=== PATIENT | male | born 1935 | race Caucasian/White ===

== ENCOUNTER 2017-01-20 15:41 | Inpatient (IN) | payer MEDICARE ==
[2017-01-20] MEDS ORDERED: Albuterol/Ipratropium 3.0-0.5 MG/3 ML Neb Soln NEB ONE (15:55)
--- NOTE | 2017-01-20 15:56 | EDM.PDOC ---
ED HPI GENERAL MEDICAL PROBLEM - General Chief Complaint: Respiratory Problem Stated Complaint: MEDICAL Time Seen by Provider: 01/20/17 15:50 Source of Information: Reports: Patient, EMS, Family, [facility] Records, Provider History Limitations: Reports: Respiratory Distress - History of Present Illness INITIAL COMMENTS - FREE TEXT/NARRATIVE: 82-year-old male who recently had an angiogram, fdc patient over the last day has become short of breath, feverish. Denies chest pain. Patient suffered a stroke 2 months ago, and just got increase to a thicker diet over the last week. He is a high risk for aspiration. He has had a cough for the last 3-4 days, but has become much worse over the past 24 hours with fever, increased dyspnea and increased cough. He's been complaining of a lot of "heartburn" over the past 2 days. Severity: Moderate Associated Symptoms: Reports: Cough, Fever/Chills, Shortness of Breath. Denies : Nausea/Vomiting Middle Chest Pain Score (Numeric/FACES): 4 - Related Data Allergies Allergy/AdvReac Type Severity Reaction Status Date / Time cephalexin Allergy Other Verified 01/20/17 18:25 lisinopril Allergy Other Verified 01/20/17 18:25 Penicillins Allergy Other Verified 01/20/17 18:25 red yeast rice Allergy Other Verified 01/20/17 18:25 Home Meds: Home Meds Acetaminophen [Acetaminophen ER] 650 mg PO BID 01/20/17 [History] Aspirin [Lo-Dose Aspirin EC] 81 mg PO DAILY 01/20/17 [History] Atenolol 25 mg PO BID 01/20/17 [History] Glucosamine Sulfate 2KCl [Glucosamine] 1,000 mg PO DAILY 01/20/17 [History] Latanoprost [Xalatan 0.005% Ophth Soln] 1 drop EYEBOTH BEDTIME 01/20/17 [History ] Menthol/Methyl Salicylate [Pain Relieving Rub Cream] 1 gm TOP BID PRN 01/20/17 [ History] Menthol/Methyl Salicylate [Pain Relieving Rub Cream] 1 gm TP BID 01/20/17 [ History] Sennosides [Senna] 1 tab PO DAILY 01/20/17 [History] Warfarin [Coumadin] 2.5 mg PO ASDIRECTED 01/20/17 [History] Warfarin [Coumadin] 5 mg PO ASDIRECTED 01/20/17 [History] atorvaSTATin [Lipitor] 10 mg PO BEDTIME 01/20/17 [History] ED ROS GENERAL - Review of Systems Review Of Systems: See Below Constitutional: Reports: Fever, Chills, Malaise HEENT: Reports: Other (Dysarthria secondary to the stroke) Respiratory: Reports: Shortness of Breath, Wheezing, Cough Cardiovascular: Denies: Palpitations GI/Abdominal: Reports: Abdominal Pain. Denies: Nausea, Vomiting : Reports: No Symptoms Skin: Reports: Diaphoresis Psychiatric: Reports: No Symptoms ED EXAM, GENERAL - Physical Exam Exam: See Below Exam Limited By: No Limitations General Appearance: Alert, No Apparent Distress (Patient is displaying some mild respiratory effort and increased rate but is not distressed) Eye Exam: Bilateral Eye: EOMI Throat/Mouth: Other (patient has some right perioral drooping secondary to a recent CVA) Head: Atraumatic Respiratory/Chest: Crackles (Diffuse expiratory wheezing bilateral basal crackles, worse on the right), Wheezing Cardiovascular: Regular Rate, Rhythm. No: Tachycardia GI/Abdominal: Tender (Reacts with tenderness to palpation of the abdomen diffusely, hypoactive bowel sounds) Extremities: Other (Right-sided weakness) Neurological: Sensory/Motor Deficit (Right arm and right leg as well as right facial droop) Psychiatric: Normal Affect, Normal Mood Skin Exam: Warm, Dry Course - Vital Signs Last Recorded V/S: Last Vital Signs Temp 97.2 F 01/21/17 04:00 Pulse 90 01/21/17 05:17 Resp 26 H 01/21/17 06:00 BP 117/59 L 01/21/17 06:00 Pulse Ox 96 01/21/17 06:00 - Orders/Labs/Meds Orders: Active Orders 24 hr Category Date Time Status RT Aerosol Therapy [RC] ASDIRECTED Care 01/20/17 15:55 Inactive Abdomen Ltd [US] Stat Exams 01/20/17 17:21 Taken Chest 1V Frontal [CR] Stat Exams 01/20/17 15:55 Taken CULTURE BLOOD [BC] Urgent Lab 01/20/17 16:10 Received CULTURE BLOOD [BC] Urgent Lab 01/20/17 16:15 Received Sodium Chloride 0.9% [Normal Saline] 1,000 ml Med 01/20/17 18:30 Active IV ASDIRECTED Blood Culture x2 Reflex Set [OM.PC] Urgent Oth 01/20/17 15:54 Ordered EKG 12 Lead [EK] Routine Ther 01/20/17 15:54 Stop Req Medication Orders Acetaminophen (Tylenol) 650 mg PO Q4H PRN PRN Reason: Pain (Mild 1-3)/fever Acetaminophen (Tylenol) 650 mg RECTAL Q4H PRN PRN Reason: Mild pain/fever Albuterol (Proventil Neb Soln) 2.5 mg NEB Q4H PRN PRN Reason: Shortness Of Breath/wheezing Albuterol/Ipratropium (Duoneb 3.0-0.5 Mg/3 Ml) 3 ml NEB QID HOLLIS Last Admin: 01/20/17 21:16 Dose: 3 ml Bisacodyl (Dulcolax) 5 mg PO DAILY PRN PRN Reason: Constipation Sodium Chloride (Normal Saline) 1,000 mls @ 125 mls/hr IV ASDIRECTED HOLLIS Last Admin: 01/21/17 05:15 Dose: 125 mls/hr Infusion: 01/21/17 04:26 Dose: 125 mls/hr Admin: 01/20/17 20:26 Dose: 125 mls/hr Meropenem 1,000 mg/ Sodium (Chloride) 100 mls @ 200 mls/hr IV Q8H HOLLIS Last Admin: 01/21/17 03:59 Dose: 200 mls/hr Admin: 01/20/17 20:16 Dose: 200 mls/hr Levofloxacin/Dextrose 750 mg/ (Premix) 150 mls @ 100 mls/hr IV Q24H HOLLIS Diltiazem HCl 100 mg/ Sodium (Chloride) 100 mls @ 5 mls/hr IV TITRATE HOLLIS; 5 MG /HR PRN Reason: Protocol Last Admin: 01/21/17 05:17 Dose: 10 mg/hr, 10 mls/hr Titration: 01/21/17 05:17 Dose: 10 mg/hr, 10 mls/hr Titration: 01/20/17 21:15 Dose: 10 mg/hr, 10 mls/hr Admin: 01/20/17 20:05 Dose: 5 mg/hr, 5 mls/hr Lorazepam (Ativan) 0.5 - 1 mg IVPUSH Q4H PRN PRN Reason: Anxiety Methylprednisolone Sodium Succinate (Solu-Medrol) 62.5 mg IVPUSH Q8H [facility] Last Admin: 01/21/17 00:43 Dose: 62.5 mg Morphine Sulfate (Morphine) 2 - 4 mg IVPUSH Q2H PRN PRN Reason: Pain (severe 7-10) Ondansetron HCl (Zofran Odt) 4 mg PO Q6H PRN PRN Reason: Nausea able to take PO Ondansetron HCl (Zofran) 4 mg IV Q6H PRN PRN Reason: Nausea/Vomiting Pantoprazole Sodium (Protonix Iv) 40 mg IVPUSH Q24H [facility] Last Admin: 01/20/17 20:11 Dose: 40 mg Polyethylene Glycol (Miralax) 17 gm PO DAILY PRN PRN Reason: Constipation Labs: Laboratory Tests 01/20/17 01/20/17 01/20/17 Range/Units 16:15 16:15 16:37 WBC 26.5 H (4.5-11.0) K/uL RBC 3.80 L (4.30-5.90) M/uL Hgb 12.4 (12.0-15.0) g/dL Hct 37.1 L (40.0-54.0) % MCV 98 (80-98) fL MCH 33 H (27-31) pg MCHC 33 (32-36) % Plt Count 257 (150-400) K/uL Neut % (Auto) 90 H (36-66) % Lymph % (Auto) 2 L (24-44) % [place] % (Auto) 8 H (2-6) % Eos % (Auto) 0 L (2-4) % Baso % (Auto) 0 (0-1) % Sodium 130 L (140-148) mmol/L Potassium 4.4 (3.6-5.2) mmol/L Chloride 95 L (100-108) mmol/L Carbon Dioxide 26 (21-32) mmol/L Anion Gap 13.4 (5.0-14.0) mmol/L BUN 22 H (7-18) mg/dL Creatinine 1.0 (0.8-1.3) mg/dL Est Cr Clr Drug Dosing TNP Estimated GFR (MDRD) > 60 (>60) Glucose 130 H (74-106) mg/dL Lactic Acid 2.7 H (0.4-2.0) mmol/L Calcium 8.7 (8.5-10.1) mg/dL Total Bilirubin 1.8 H (0.2-1.0) mg/dL AST 110 H (15-37) U/L ALT 102 H (12-78) U/L Alkaline Phosphatase 240 H (46-116) U/L Troponin I < 0.017 (0.000-0.056) ng/mL Total Protein 8.6 H (6.4-8.2) g/dL Albumin 2.7 L (3.4-5.0) g/dL Globulin 5.9 H (2.3-3.5) g/dL Albumin/Globulin Ratio 0.5 L (1.2-2.2) Amylase 20 L (25-115) U/L Lipase 70 L (73-393) U/L Meds: Medications Generic Name Dose Route Start Last Admin Trade Name Freq PRN Reason Stop Dose Admin Acetaminophen 650 mg 01/20/17 19:41 Tylenol PO Q4H PRN Pain (Mild 1-3)/fever Acetaminophen 650 mg 01/20/17 19:41 Tylenol RECTAL Q4H PRN Mild pain/fever Albuterol 2.5 mg 01/20/17 19:41 Proventil Neb Soln NEB Q4H PRN Shortness Of Breath/wheezing Albuterol/Ipratropium 3 ml 01/20/17 22:00 01/20/17 21:16 Duoneb 3.0-0.5 Mg/3 Ml NEB 3 ml QID HOLLIS Administration Bisacodyl 5 mg 01/20/17 19:41 Dulcolax PO DAILY PRN Constipation Sodium Chloride 1,000 mls @ 125 mls/hr 01/20/17 18:30 01/21/17 05:15 Normal Saline IV 125 mls/hr ASDIRECTED HOLLIS Administration Meropenem 1,000 mg/ Sodium 100 mls @ 200 mls/hr 01/20/17 20:00 01/21/17 03:59 Chloride IV 200 mls/hr Q8H HOLLIS Administration Levofloxacin/Dextrose 750 mg/ 150 mls @ 100 mls/hr 01/21/17 18:00 Premix IV Q24H HOLLIS Diltiazem HCl 100 mg/ Sodium 100 mls @ 5 mls/hr 01/20/17 19:41 01/21/17 05:17 Chloride IV 10 mg/hr TITRATE HOLLIS 10 mls/hr Protocol Administration 5 MG/HR Lorazepam 0.5 - 1 mg 01/20/17 19:41 Ativan IVPUSH Q4H PRN Anxiety Methylprednisolone Sodium Succinate 62.5 mg 01/21/17 01:00 01/21/17 00:43 Solu-Medrol IVPUSH 62.5 mg Q8H HOLLIS Administration Morphine Sulfate 2 - 4 mg 01/20/17 19:41 Morphine IVPUSH Q2H PRN Pain (severe 7-10) Ondansetron HCl 4 mg 01/20/17 19:41 Zofran Odt PO Q6H PRN Nausea able to take PO Ondansetron HCl 4 mg 01/20/17 19:41 Zofran IV Q6H PRN Nausea/Vomiting Pantoprazole Sodium 40 mg 01/20/17 20:00 01/20/17 20:11 Protonix Iv IVPUSH 40 mg Q24H HOLLIS Administration Polyethylene Glycol 17 gm 01/20/17 19:41 Miralax PO DAILY PRN Constipation Discontinued Medications Generic Name Dose Route Start Last Admin Trade Name Freq PRN Reason Stop Dose Admin Acetaminophen 1,000 mg 01/20/17 16:43 01/20/17 16:52 Tylenol Extra Strength PO 01/20/17 16:44 1,000 mg ONETIME ONE Administration Albuterol/Ipratropium 3 ml 01/20/17 15:55 01/20/17 16:19 Duoneb 3.0-0.5 Mg/3 Ml NEB 01/20/17 15:56 3 ml ONETIME ONE Administration Diltiazem HCl 10 mg 01/20/17 18:43 01/20/17 18:46 Diltiazem IVPUSH 01/20/17 18:44 10 mg ONETIME ONE Administration Levofloxacin/Dextrose 750 mg/ 150 mls @ 100 mls/hr 01/20/17 16:36 01/20/17 16 :44 Premix IV 01/20/17 18:05 100 mls/hr ONETIME ONE Administration Sodium Chloride 1,000 mls @ 1,000 mls/hr 01/20/17 16:45 Normal Saline IV ASDIRECTED HOLLIS Sodium Chloride 1,000 mls @ 250 mls/hr 01/20/17 18:17 Normal Saline IV 01/21/17 00:46 ASDIRECTED HOLLIS Sodium Chloride 2,000 mls @ 999 mls/hr 01/20/17 18:20 01/20/17 18:33 Normal Saline IV 01/20/17 20:20 999 mls/hr .BOLUS ONE Administration Sodium Chloride 1,000 mls @ 1,000 mls/hr 01/20/17 18:32 01/20/17 18:34 Normal Saline IV 01/20/17 19:31 Not Given ONETIME ONE Lorazepam 1 mg 01/20/17 17:06 01/20/17 17:03 Ativan IVPUSH 01/20/17 17:07 1 mg ONETIME ONE Administration Lorazepam Confirm 01/20/17 17:06 01/20/17 17:25 Ativan Administered 01/20/17 17:07 Not Given Dose 2 mg .ROUTE .STK-MED ONE Methylprednisolone Sodium Succinate 125 mg 01/20/17 16:36 01/20/17 16:43 Solu-Medrol IVPUSH 01/20/17 16:37 125 mg ONETIME ONE Administration Morphine Sulfate Confirm 01/20/17 17:02 01/20/17 17:01 Morphine Administered 01/20/17 17:03 2 mg Dose Administration 2 mg .ROUTE .STK-MED ONE - Re-Assessments/Exams Free Text/Narrative Re-Assessment/Exam: 01/20/17 16:51 A 1 view portable chest x-ray was obtained which is poor inspiration, high diaphragms possibly covering infiltrates but nothing seen to confirm an infiltrate at this time. CBC returned white blood cell count 26,500. Blood cultures were obtained, CMP lactic acid are pending, normal saline bolus started as well as 125 mg of Solu-Medrol and 750 mg of IV Levaquin after blood cultures were drawn. 01/20/17 17:06 Lactic acid, LFTs, bilirubin all elevated. Patient continued to become more distressed so was given 2 mg of morphine IV along with 1 mg of Ativan IV. BiPAP was initiated. 01/20/17 17:22 Patient responded to the IV sedation. O2 saturations remained 95-97% with BiPAP. Even sedated however he still seemed uncomfortable with abdominal exam, with elevated liver enzymes and bilirubin an ultrasound of the gallbladder was ordered. Ultrasound showed evidence of cholecystitis with a dilated gallbladder , stones and mild wall thickening. Departure - Departure Time of Disposition: 19:19 Disposition: Admitted As Inpatient 68 Condition: Poor Clinical Impression: Hypoxemia, Acute respiratory failure with hypoxia, Cholecystitis, acute Aspiration pneumonia Qualifiers: Aspiration pneumonia type: due to regurgitated food Laterality: right Lung location: lower lobe of lung Qualified Code(s): J69.0 - Pneumonitis due to inhalation of food and vomit - Discharge Information - My Orders Last 24 Hours: My Active Orders 01/20/17 15:54 Blood Culture x2 Reflex Set [OM.PC] Urgent EKG 12 Lead [EK] Routine 01/20/17 15:55 RT Aerosol Therapy [RC] ASDIRECTED Chest 1V Frontal [CR] Stat 01/20/17 16:10 CULTURE BLOOD [BC] Urgent 01/20/17 16:15 CULTURE BLOOD [BC] Urgent 01/20/17 17:21 Abdomen Ltd [US] Stat - Assessment/Plan Last 24 Hours: My Active Orders 01/20/17 15:54 Blood Culture x2 Reflex Set [OM.PC] Urgent EKG 12 Lead [EK] Routine 01/20/17 15:55 RT Aerosol Therapy [RC] ASDIRECTED Chest 1V Frontal [CR] Stat 01/20/17 16:10 CULTURE BLOOD [BC] Urgent 01/20/17 16:15 CULTURE BLOOD [BC] Urgent 01/20/17 17:21 Abdomen Ltd [US] Stat
[2017-01-20] MEDS ORDERED: methylPREDNISolone Sodium Succinate 125 MG/2 ML SDV IVPUSH ONE (16:36)
[2017-01-20] MEDS ORDERED: Levofloxacin/Dextrose 5%-Water 750 MG in Premix Bag 1 BAG IV ONE (16:36)
[2017-01-20] MEDS ORDERED: cefTRIAXone 1 GM in Sodium Chloride 0.9% 50 ML IV ONE (16:36)
[2017-01-20] MEDS ORDERED: Azithromycin 500 MG in Sodium Chloride 0.9% 250 ML IV ONE (16:40)
[2017-01-20] MEDS ORDERED: Acetaminophen 500 MG Tab PO ONE (16:43)
[2017-01-20] MEDS ORDERED: Sodium Chloride 0.9% 1,000 ML IV SCH ×2 (16:45→18:17)
[2017-01-20] MEDS: Morphine 2 MG/ML Syringe ONE (17:01)
[2017-01-20] MEDS: LORazepam 2 MG/ML MDV ONE ×2 (17:01→17:25)
[2017-01-20] MEDS ORDERED: Morphine 2 MG/ML Syringe IVPUSH ONE (17:01)
[2017-01-20] MEDS ORDERED: LORazepam 2 MG/ML MDV IVPUSH ONE ×2 (17:06→17:40)
[2017-01-20] MEDS ORDERED: Sodium Chloride 0.9% 2,000 ML IV ONE (18:20)
[2017-01-20] MEDS ORDERED: Sodium Chloride 0.9% 1,000 ML IV ONE (18:32)
--- NOTE | 2017-01-20 18:32 | PCM.HP ---
H&P History of Present Illness - General Date of Service: 01/20/17 Admit Problem/Dx: Admission Diagnosis/Problem Admission Diagnosis/Problem Aspiration pneumonia Source of Information: Family, Provider. No: Patient History Limitations: Reports: Altered Mental Status - History of Present Illness Initial Comments - Free Text/Narative: Cesar was brought to the emergency room by ambulance after longterm staff noted increasing shortness of breath and respiratory distress. He is extremely lethargic and unable to provide any history at this time. History is gathered from his , longterm records and emergency room records. She reports that he hasn't felt well for the past couple of days with increasing cough and shortness of breath. He had also been complaining of increased heartburn and some epigastric abdominal pain. They had noticed fevers until today. His reports that he was recently switched from nectar thick to regular liquids but has been having some difficulty with swallowing over the past 3 days or so. Upon arrival to the emergency room he was noted to be in significant respiratory distress. He was given a nebulizer and started on noninvasive ventilation after supplemental oxygen proved to be insufficient. Chest x-ray was concerning for right lower lung pneumonia and probable aspiration. Hepatic panel testing showed elevation concerning for possible gallbladder or liver disease in the right upper quadrant ultrasound was suggestive of possible cholecystitis. He has hypoxic respiratory failure due to the aspiration and will be admitted to the intensive care unit on noninvasive ventilation. Middle Chest Pain Score (Numeric/FACES): 4 - Related Data Allergies/Adverse Reactions: Allergies Allergy/AdvReac Type Severity Reaction Status Date / Time cephalexin Allergy Other Verified 01/20/17 18:25 lisinopril Allergy Other Verified 01/20/17 18:25 Penicillins Allergy Other Verified 01/20/17 18:25 red yeast rice Allergy Other Verified 01/20/17 18:25 Home Medications: Home Meds Acetaminophen [Acetaminophen ER] 650 mg PO BID 01/20/17 [History] Aspirin [Lo-Dose Aspirin EC] 81 mg PO DAILY 01/20/17 [History] Atenolol 25 mg PO BID 01/20/17 [History] Glucosamine Sulfate 2KCl [Glucosamine] 1,000 mg PO DAILY 01/20/17 [History] Latanoprost [Xalatan 0.005% Ophth Soln] 1 drop EYEBOTH BEDTIME 01/20/17 [History ] Menthol/Methyl Salicylate [Pain Relieving Rub Cream] 1 gm TOP BID PRN 01/20/17 [ History] Menthol/Methyl Salicylate [Pain Relieving Rub Cream] 1 gm TP BID 01/20/17 [ History] Sennosides [Senna] 1 tab PO DAILY 01/20/17 [History] Warfarin [Coumadin] 2.5 mg PO ASDIRECTED 01/20/17 [History] Warfarin [Coumadin] 5 mg PO ASDIRECTED 01/20/17 [History] atorvaSTATin [Lipitor] 10 mg PO BEDTIME 01/20/17 [History] Past Medical History Cardiovascular History: Reports: Afib, High Cholesterol, Hypertension Neurological History: Reports: Cerebral Aneurysms, CVA Social & Family History - Family History Cardiac: Denies: CAD - Tobacco Use Smoking Status *Q: Never Smoker - Alcohol Use Alcohol Use History: No H&P Review of Systems - Review of Systems: Review Of Systems: Unable To Obtain (pt very lethargic) Exam - Exam Exam: See Below - Vital Signs Vital Signs: Last Vital Signs Temp 38.5 C H 01/20/17 17:29 Pulse 97 01/20/17 18:13 Resp 40 H 01/20/17 18:13 BP 156/123 H 01/20/17 18:13 Pulse Ox 99 01/20/17 18:13 - Exam Quality Assessment: Supplemental Oxygen, Urinary Catheter General: Moderate Distress, Lethargic. No: Alert HEENT: Conjunctiva Clear. No: Mucosa Moist & [place] (dry), Scleral Icterus Neck: Supple, Trachea Midline. No: Lymphadenopathy Lungs: Decreased Breath Sounds (right lung base), Rales (right lung base). No: Normal Respiratory Effort (increased work of breathing) Cardiovascular: Regular Rhythm, Tachycardia, Systolic Murmur GI/Abdominal Exam: Soft, Distended, Tender, Abnormal Bowel Sounds (hypoactive) Extremities: Normal Inspection, No Pedal Edema. No: Increased Warmth Peripheral Pulses: 1+: Dorsalis Pedis (L), Dorsalis Pedis (R) Skin: Warm, Dry, Intact Neuro Extensive - Mental Status: Slow Response to Commands. No: Alert Neuro Extensive - Motor, Sensory, Reflexes: Dysarthria, Abnormal Motor. No: Tremor Psychiatric: Anxious. No: Alert - Patient Data Lab Results Last 24 hrs: Laboratory Results - last 24 hr 0801/20/17 01/20/17 Range/Units 16:15 16:15 16:37 WBC 26.5 H (4.5-11.0) K/uL RBC 3.80 L (4.30-5.90) M/uL Hgb 12.4 (12.0-15.0) g/dL Hct 37.1 L (40.0-54.0) % MCV 98 (80-98) fL MCH 33 H (27-31) pg MCHC 33 (32-36) % Plt Count 257 (150-400) K/uL Neut % (Auto) 90 H (36-66) % Lymph % (Auto) 2 L (24-44) % [place] % (Auto) 8 H (2-6) % Eos % (Auto) 0 L (2-4) % Baso % (Auto) 0 (0-1) % Sodium 130 L (140-148) mmol/L Potassium 4.4 (3.6-5.2) mmol/L Chloride 95 L (100-108) mmol/L Carbon Dioxide 26 (21-32) mmol/L Anion Gap 13.4 (5.0-14.0) mmol/L BUN 22 H (7-18) mg/dL Creatinine 1.0 (0.8-1.3) mg/dL Est Cr Clr Drug Dosing TNP Estimated GFR (MDRD) > 60 (>60) Glucose 130 H (74-106) mg/dL Lactic Acid 2.7 H (0.4-2.0) mmol/L Calcium 8.7 (8.5-10.1) mg/dL Total Bilirubin 1.8 H (0.2-1.0) mg/dL AST 110 H (15-37) U/L ALT 102 H (12-78) U/L Alkaline Phosphatase 240 H (46-116) U/L Troponin I < 0.017 (0.000-0.056) ng/mL Total Protein 8.6 H (6.4-8.2) g/dL Albumin 2.7 L (3.4-5.0) g/dL Globulin 5.9 H (2.3-3.5) g/dL Albumin/Globulin Ratio 0.5 L (1.2-2.2) Amylase 20 L (25-115) U/L Lipase 70 L (73-393) U/L Result Diagrams: 01/20/17 16:15 01/20/17 16:15 Imaging Impressions Last 24 hrs: Chest x-ray - images personally reviewed - poor quality film with shallow inspiration. Possible right lower lung infiltrate. Right hemidiaphragm appears a little elevated. No definite upper lung infiltrate or mass. *Q Meaningful Use (ADM) - VTE *Q VTE Criteria *Q: - VTE Risk Assess *Q Each Risk Factor Represents 1 Point: Serious Lung Disease Including Pneumonia, Less than 1 Month Total Score 1 Point Risk Factors: 1 Each Risk Factor Represents 2 Points: None Total Score 2 Point Risk Factors: 0 Each Risk Factor Represents 3 Points: Age 75 Years or Greater Total Score 3 Point Risk Factors: 3 Each Risk Factor Represents 5 Points: Stroke, Less than 1 Month Total Score 5 Point Risk Factors: 5 Venous Thromboembolism Risk Factor Score *Q: 9 - Stroke *Q Stroke Criteria *Q: - AMI *Q AMI Criteria *Q: - Problem List (1) Aspiration pneumonia SNOMED Code(s): 171434644 ICD Code: J69.0 - PNEUMONITIS DUE TO INHALATION OF FOOD AND VOMIT Status: Acute Current Visit: Yes Qualifiers: Aspiration pneumonia type: due to regurgitated food Laterality: right Lung location: lower lobe of lung Qualified Code(s): J69.0 - Pneumonitis due to inhalation of food and vomit (2) Acute respiratory failure with hypoxia SNOMED Code(s): 17773752, 847415312 ICD Code: J96.01 - ACUTE RESPIRATORY FAILURE WITH HYPOXIA Status: Acute Current Visit: Yes (3) Cholecystitis with cholelithiasis SNOMED Code(s): 555583519, 145909196 ICD Code: K80.10 - CALCULUS OF GALLBLADDER W CHRONIC CHOLECYST W/O OBSTRUCTION Status: Suspected Current Visit: Yes Qualifiers: Cholelithiasis location: gallbladder Cholecystitis acuity: acute Biliary obstruction: without biliary obstruction Qualified Code(s): K80.00 - Calculus of gallbladder with acute cholecystitis without obstruction (4) Cerebrovascular disease SNOMED Code(s): 46503573 ICD Code: I67.9 - CEREBROVASCULAR DISEASE, UNSPECIFIED Status: Acute Current Visit: Yes (5) Atrial fibrillation with rapid ventricular response SNOMED Code(s): 739548956827457 ICD Code: I48.91 - UNSPECIFIED ATRIAL FIBRILLATION Status: Acute Current Visit: Yes Problem List Initiated/Reviewed/Updated: Yes Orders Last 24hrs: Active Orders 24 hr Category Date Time Status Patient Status Manage Transfer [TRANSFER] Routine ADT 01/20/17 18:21 Ordered EKG Documentation Completion [RC] ASDIRECTED Care 01/20/17 15:54 Active RT Aerosol Therapy [RC] ASDIRECTED Care 01/20/17 15:55 Active Abdomen Ltd [US] Stat Exams 01/20/17 17:21 Taken Chest 1V Frontal [CR] Stat Exams 01/20/17 15:55 Taken CULTURE BLOOD [BC] Urgent Lab 01/20/17 16:10 Received CULTURE BLOOD [BC] Urgent Lab 01/20/17 16:15 Received Sodium Chloride 0.9% [Normal Saline] 1,000 ml Med 01/20/17 18:30 Active IV ASDIRECTED Sodium Chloride 0.9% [Normal Saline] 2,000 ml Med 01/20/17 18:20 Active IV .BOLUS Blood Culture x2 Reflex Set [OM.PC] Urgent Oth 01/20/17 15:54 Ordered Resuscitation Status Routine Resus Stat 01/20/17 18:22 Ordered EKG 12 Lead [EK] Routine Ther 01/20/17 15:54 Ordered Medication Orders Sodium Chloride (Normal Saline) 1,000 mls @ 125 mls/hr IV ASDIRECTED HOLLIS Sodium Chloride (Normal Saline) 2,000 mls @ 999 mls/hr IV .BOLUS ONE Stop: 01/20/17 20:20 Assessment/Plan Comment:: Assessment and plan - Probable aspiration pneumonia with hypoxic respiratory failure and sepsis - suspected aspiration a couple of days ago and progressive decline in respiratory status. Patient febrile and has evidence for sepsis at this time. He is very ill despite being on noninvasive ventilation and has a high chance of mortality with this event I believe. Cultures have been collected. -Levofloxacin and meropenem -Noninvasive ventilation -Nebs -Steroids -Repeat lactic acid -Follow-up cultures -Nothing by mouth status Atrial fibrillation with rapid ventricular response - developed in the emergency room. Will be receiving a bolus of diltiazem and then an infusion will start once he arrives in the intensive care unit. -Diltiazem drip -Cardiac monitoring -Optimize electrolytes Possible cholecystitis with cholelithiasis - gallbladder appears distended with mildly thickened gallbladder wall based on ultrasound. Patient is too ill to have any sort of intervention at this time. Infectious causes should be covered by antibiotics as above. 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 Had been on nectar thick liquids but was recently transitioned to regular liquids prior to becoming ill. -Continue medical management Maintenance issues - - DVT prophylaxis - warfarin - GI prophylaxis - PPI - Nutrition - nothing by mouth - Castillo catheter - placed in the emergency room CODE STATUS - DNR/DNI Admission justification - This patient will be admitted for inpatient services and is medically appropriate meeting medical necessity for inpatient admission as outlined in my documentation. I reasonably expect the patient will require inpatient services that span a period time over 2 midnights. I reasonably expect this patient to be discharged or transferred within 96 hours [facility] Disposition - anticipate discharge to the longterm if he survives the hospital stay Primary care physician - Dr Alberto Fleming M.D.
[2017-01-20] MEDS ORDERED: Diltiazem 25 MG/5 ML SDV IVPUSH ONE (18:43)
[2017-01-20] MEDS ORDERED: Ondansetron 4 MG/2 ML SDV IV PRN (19:41)
[2017-01-20] MEDS ORDERED: Polyethylene Glycol 3350 Powder 17 GM Packet PO PRN (19:41)
[2017-01-20] MEDS ORDERED: Ondansetron 4 MG Tab.DIS PO PRN (19:41)
[2017-01-20] MEDS ORDERED: Bisacodyl 5 MG Tab PO PRN (19:41)
[2017-01-20] MEDS ORDERED: Albuterol 0.083% 2.5 MG/3 ML Neb Soln NEB PRN (19:41)
[2017-01-20] MEDS ORDERED: Acetaminophen 650 MG Supp RECTAL PRN (19:41)
[2017-01-20] MEDS: Diltiazem 100 MG in Sodium Chloride 0.9% 100 ML IV SCH (20:05)
[2017-01-20] MEDS: Pantoprazole 40 MG Vial IVPUSH SCH (20:11)
[2017-01-20] MEDS: Meropenem 1,000 MG in Sodium Chloride 0.9% 100 ML IV SCH (20:16)
[2017-01-20] MEDS: Sodium Chloride 0.9% 1,000 ML IV SCH (20:26)
[2017-01-20] MEDS: Albuterol/Ipratropium 3.0-0.5 MG/3 ML Neb Soln NEB SCH (21:16)
[2017-01-21] MEDS: methylPREDNISolone Sodium Succinate 125 MG/2 ML SDV IVPUSH SCH ×3 (00:43→17:10)
[2017-01-21] MEDS: Meropenem 1,000 MG in Sodium Chloride 0.9% 100 ML IV SCH (03:59)
[2017-01-21] MEDS: Sodium Chloride 0.9% 1,000 ML IV SCH (05:15)
[2017-01-21] MEDS: Diltiazem 100 MG in Sodium Chloride 0.9% 100 ML IV SCH ×2 (05:17→15:28)
[2017-01-21] MEDS: Albuterol/Ipratropium 3.0-0.5 MG/3 ML Neb Soln NEB SCH ×5 (07:31→21:14)
[2017-01-21] MEDS: Morphine 2 MG/ML Syringe ONE (07:35)
[2017-01-21] MEDS ORDERED: Sodium Chloride 0.9% 1,000 ML IV SCH (10:00)
--- NOTE | 2017-01-21 10:02 | CR ---
Chest 1V Frontal HISTORY: fever, resp distress FINDINGS: There is incomplete inspiration. No acute infiltrate is identified. Cardiomediastinal silh ouette is within normal limits for the AP, portable technique. Atherosclerotic calcification is seen in the aortic arch. There is no vascular redistribution or pleural fluid. Chronic rotator cuff tear changes both shoulders are noted. There are anterolateral osteophytes along the thoracic spine. IMPRESSION: 1. Incomplete inspiration. No acute cardiopulmonary disease is identified. 2. Atherosclerotic aorta. 3. Chronic rotator cuff tear changes both shoulders and degenerative changes thoracic spine are note d.
--- NOTE | 2017-01-21 10:07 | PCM.PN ---
- General Info Date of Service: 01/21/17 Functional Status: Reports: Pain Controlled - Review of Systems General: Reports: Fever, Weakness. Denies: Chills Pulmonary: Reports: Shortness of Breath, Cough Cardiovascular: Reports: No Symptoms Gastrointestinal: Reports: No Symptoms Systems Review Comment:: This patient is stabilized since admission yesterday, he had developed acute hypoxic respiratory failure secondary to aspiration pneumonia. He's been on BiPAP overnight and respiratory status has been fairly stable, he is also been hemodynamically stable. More alert today and interactive, but confused. - Patient Data Vitals - Most Recent: Last Vital Signs Temp 97.8 F 01/21/17 07:59 Pulse 88 01/21/17 07:59 Resp 25 H 01/21/17 07:59 BP 115/79 01/21/17 07:59 Pulse Ox 100 01/21/17 07:59 Weight - Most Recent: 180 lb 1.883 oz I&O - Last 24 Hours: Intake & Output 01/20/17 01/21/17 01/21/17 22:59 06:59 14:59 Intake Total 2498 Balance 2498 Lab Results Last 24 Hours: Laboratory Results - last 24 hr 01/20/17 01/21/17 01/21/17 Range/Units 21:39 05:40 05:40 WBC 24.9 H (4.5-11.0) K/uL RBC 3.16 L (4.30-5.90) M/uL Hgb 10.4 L D (12.0-15.0) g/dL Hct 31.1 L (40.0-54.0) % MCV 98 (80-98) fL MCH 33 H (27-31) pg MCHC 33 (32-36) % Plt Count 199 (150-400) K/uL PT 21.6 H (9.5-12.0) sec INR 1.96 H (0.80-1.20) Sodium (140-148) mmol/L Potassium (3.6-5.2) mmol/L Chloride (100-108) mmol/L Carbon Dioxide (21-32) mmol/L Anion Gap (5.0-14.0) mmol/L BUN (7-18) mg/dL Creatinine (0.8-1.3) mg/dL Est Cr Clr Drug Dosing mL/min Estimated GFR (MDRD) (>60) Glucose (74-106) mg/dL Lactic Acid 1.7 (0.4-2.0) mmol/L Calcium (8.5-10.1) mg/dL Total Bilirubin (0.2-1.0) mg/dL AST (15-37) U/L ALT (12-78) U/L Alkaline Phosphatase (46-116) U/L Total Protein (6.4-8.2) g/dL Albumin (3.4-5.0) g/dL Globulin (2.3-3.5) g/dL Albumin/Globulin Ratio (1.2-2.2) 01/21/17 Range/Units 05:40 WBC (4.5-11.0) K/uL RBC (4.30-5.90) M/uL Hgb (12.0-15.0) g/dL Hct (40.0-54.0) % MCV (80-98) fL MCH (27-31) pg MCHC (32-36) % Plt Count (150-400) K/uL PT (9.5-12.0) sec INR (0.80-1.20) Sodium 136 L (140-148) mmol/L Potassium 4.1 (3.6-5.2) mmol/L Chloride 104 (100-108) mmol/L Carbon Dioxide 21 (21-32) mmol/L Anion Gap 15.1 H (5.0-14.0) mmol/L BUN 21 H (7-18) mg/dL Creatinine 1.0 (0.8-1.3) mg/dL Est Cr Clr Drug Dosing 58.92 mL/min Estimated GFR (MDRD) > 60 (>60) Glucose 166 H (74-106) mg/dL Lactic Acid (0.4-2.0) mmol/L Calcium 7.9 L (8.5-10.1) mg/dL Total Bilirubin 1.4 H (0.2-1.0) mg/dL AST 76 H (15-37) U/L ALT 75 (12-78) U/L Alkaline Phosphatase 200 H (46-116) U/L Total Protein 6.8 (6.4-8.2) g/dL Albumin 2.0 L (3.4-5.0) g/dL Globulin 4.8 H (2.3-3.5) g/dL Albumin/Globulin Ratio 0.4 L (1.2-2.2) Med Orders - Current: Current Medications Acetaminophen (Tylenol) 650 mg PO Q4H PRN PRN Reason: Pain (Mild 1-3)/fever Acetaminophen (Tylenol) 650 mg RECTAL Q4H PRN PRN Reason: Mild pain/fever Albuterol (Proventil Neb Soln) 2.5 mg NEB Q4H PRN PRN Reason: Shortness Of Breath/wheezing Albuterol/Ipratropium (Duoneb 3.0-0.5 Mg/3 Ml) 3 ml NEB QIDRT [facility] Last Admin: 01/21/17 07:31 Dose: 3 ml Bisacodyl (Dulcolax) 5 mg PO DAILY PRN PRN Reason: Constipation Levofloxacin/Dextrose 750 mg/ (Premix) 150 mls @ 100 mls/hr IV Q24H [facility] Diltiazem HCl 100 mg/ Sodium (Chloride) 100 mls @ 5 mls/hr IV TITRATE [facility]; 5 MG /HR PRN Reason: Protocol Last Admin: 01/21/17 05:17 Dose: 10 mg/hr, 10 mls/hr Meropenem 1 gm/ Sodium (Chloride) 50 mls @ 100 mls/hr IV Q8H [facility] Sodium Chloride (Normal Saline) 1,000 mls @ 50 mls/hr IV ASDIRECTED [facility] Lorazepam (Ativan) 0.5 - 1 mg IVPUSH Q4H PRN PRN Reason: Anxiety Methylprednisolone Sodium Succinate (Solu-Medrol) 62.5 mg IVPUSH Q8H [facility] Last Admin: 01/21/17 08:48 Dose: 62.5 mg Morphine Sulfate (Morphine) 2 - 4 mg IVPUSH Q2H PRN PRN Reason: Pain (severe 7-10) Ondansetron HCl (Zofran Odt) 4 mg PO Q6H PRN PRN Reason: Nausea able to take PO Ondansetron HCl (Zofran) 4 mg IV Q6H PRN PRN Reason: Nausea/Vomiting Pantoprazole Sodium (Protonix Iv) 40 mg IVPUSH Q24H [facility] Last Admin: 01/20/17 20:11 Dose: 40 mg Polyethylene Glycol (Miralax) 17 gm PO DAILY PRN PRN Reason: Constipation Warfarin Sodium (Coumadin) 5 mg PO ONETIME ONE Stop: 01/21/17 09:58 Discontinued Medications Acetaminophen (Tylenol Extra Strength) 1,000 mg PO ONETIME ONE Stop: 01/20/17 16:44 Last Admin: 01/20/17 16:52 Dose: 1,000 mg Albuterol/Ipratropium (Duoneb 3.0-0.5 Mg/3 Ml) 3 ml NEB ONETIME ONE Stop: 01/20/17 15:56 Last Admin: 01/20/17 16:19 Dose: 3 ml Albuterol/Ipratropium (Duoneb 3.0-0.5 Mg/3 Ml) 3 ml NEB QID [facility] Last Admin: 01/21/17 07:31 Dose: Not Given Diltiazem HCl (Diltiazem) 10 mg IVPUSH ONETIME ONE Stop: 01/20/17 18:44 Last Admin: 01/20/17 18:46 Dose: 10 mg Levofloxacin/Dextrose 750 mg/ (Premix) 150 mls @ 100 mls/hr IV ONETIME ONE Stop: 01/20/17 18:05 Last Admin: 01/20/17 16:44 Dose: 100 mls/hr Sodium Chloride (Normal Saline) 1,000 mls @ 1,000 mls/hr IV ASDIRECTED [facility] Sodium Chloride (Normal Saline) 1,000 mls @ 125 mls/hr IV ASDIRECTED [facility] Last Admin: 01/21/17 05:15 Dose: 125 mls/hr Sodium Chloride (Normal Saline) 1,000 mls @ 250 mls/hr IV ASDIRECTED [facility] Stop: 01/21/17 00:46 Sodium Chloride (Normal Saline) 2,000 mls @ 999 mls/hr IV .BOLUS ONE Stop: 01/20/17 20:20 Last Admin: 01/20/17 18:33 Dose: 999 mls/hr Sodium Chloride (Normal Saline) 1,000 mls @ 1,000 mls/hr IV ONETIME ONE Stop: 01/20/17 19:31 Last Admin: 01/20/17 18:34 Dose: Not Given Meropenem 1,000 mg/ Sodium (Chloride) 100 mls @ 200 mls/hr IV Q8H [facility] Last Admin: 01/21/17 03:59 Dose: 200 mls/hr Lorazepam (Ativan) 1 mg IVPUSH ONETIME ONE Stop: 01/20/17 17:07 Last Admin: 01/20/17 17:03 Dose: 1 mg Lorazepam (Ativan) Confirm Administered Dose 2 mg .ROUTE .STK-MED ONE Stop: 01/20/17 17:07 Last Admin: 01/20/17 17:25 Dose: Not Given Methylprednisolone Sodium Succinate (Solu-Medrol) 125 mg IVPUSH ONETIME ONE Stop: 01/20/17 16:37 Last Admin: 01/20/17 16:43 Dose: 125 mg Morphine Sulfate (Morphine) Confirm Administered Dose 2 mg .ROUTE .STK-MED ONE Stop: 01/20/17 17:03 Last Admin: 01/21/17 07:35 Dose: Not Given Morphine Sulfate (Morphine) 2 mg IVPUSH ONETIME ONE Stop: 01/20/17 17:02 Last Admin: 01/20/17 17:01 Dose: 2 mg - Exam Quality Assessment: Supplemental Oxygen (BiPAP) General: Alert, Cooperative, Mild Distress Lungs: Normal Respiratory Effort, Rales, Rhonchi Cardiovascular: Regular Rate, No Murmurs, Irregular Rhythm GI/Abdominal Exam: Normal Bowel Sounds, Soft, Non-Tender, No Organomegaly Extremities: Normal Inspection, Normal Range of Motion, No Pedal Edema Skin: Warm, Dry, Intact - Problem List Review Problem List Initiated/Reviewed/Updated: Yes - My Orders Last 24 Hours: My Active Orders 01/21/17 09:57 Warfarin [Coumadin] 5 mg PO ONETIME ONE 01/21/17 10:00 Sodium Chloride 0.9% @ 50 MLS/HR(1000ml) Sodium Chloride 0.9% [Normal Saline] 1 ,000 ml IV ASDIRECTED 01/21/17 Lunch Soft Diet [DIET] Thickened Liquids [DIET] 01/22/17 05:00 CBC WITH AUTO DIFF [HEME] Timed COMPREHENSIVE METABOLIC PN,CMP [CHEM] Timed MAGNESIUM [CHEM] Timed 01/22/17 05:11 INR,PT,PROTHROMBIN TIME [COAG] AM - Plan Plan:: Assessment and plan - Probable aspiration pneumonia with hypoxic respiratory failure and sepsis - stabilize since admission with use of BiPAP, adequate oxygenation with use of BiPAP but he develops respiratory compromise relatively quickly when off of the respiratory assistance. -Levofloxacin and meropenem -Noninvasive ventilation -Nebs -Steroids -Repeat lactic acid -Follow-up cultures -Soft diet with nectar thickened liquids Atrial fibrillation with rapid ventricular response - rate control has been adequate, continue diltiazem infusion -Diltiazem drip -Cardiac monitoring -Optimize electrolytes Possible cholecystitis with cholelithiasis - gallbladder appears distended with mildly thickened gallbladder wall based on ultrasound. Patient is too ill to have any sort of intervention at this time. Infectious causes should be covered by antibiotics as above. 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 Had been on nectar thick liquids but was recently transitioned to regular liquids prior to becoming ill. -Continue medical management Constipation-chronic problem -Miralax twice daily -Dulcolax suppository Palliative care-family is in agreement with current management with would not want further aggressive interventions including mechanical ventilation. Maintenance issues - - DVT prophylaxis - warfarin - GI prophylaxis - PPI - Nutrition - nothing by mouth - Castillo catheter - placed in the emergency room CODE STATUS - DNR/DNI Admission justification - This patient will be admitted for inpatient services and is medically appropriate meeting medical necessity for inpatient admission as outlined in my documentation. I reasonably expect the patient will require inpatient services that span a period time over 2 midnights. I reasonably expect this patient to be discharged or transferred within 96 hours [facility] Disposition - anticipate discharge to the residential if he survives the hospital stay Primary care physician - Dr Dominguez
[2017-01-21] MEDS ORDERED: Warfarin 5 MG Tab PO ONE (11:00)
[2017-01-21] MEDS: Polyethylene Glycol 3350 Powder 17 GM Packet PO SCH ×2 (11:12→21:13)
[2017-01-21] MEDS: Bisacodyl 10 MG Supp RECTAL ONE ×3 (13:56→17:06)
[2017-01-21] MEDS: Levofloxacin/Dextrose 5%-Water 750 MG in Premix Bag 1 BAG IV SCH (17:22)
[2017-01-21] MEDS: LORazepam 2 MG/ML MDV IVPUSH PRN (18:23)
[2017-01-21] MEDS: Pantoprazole 40 MG Vial IVPUSH SCH (20:48)
[2017-01-21] MEDS: Acetaminophen 325 MG Tab PO PRN (21:07)
[2017-01-22] MEDS: methylPREDNISolone Sodium Succinate 125 MG/2 ML SDV IVPUSH SCH ×2 (01:35→08:25)
[2017-01-22] MEDS: Diltiazem 100 MG in Sodium Chloride 0.9% 100 ML IV SCH ×2 (02:55→13:07)
[2017-01-22] MEDS: LORazepam 2 MG/ML MDV IVPUSH PRN ×3 (03:12→21:50)
[2017-01-22] MEDS: Albuterol/Ipratropium 3.0-0.5 MG/3 ML Neb Soln NEB SCH ×4 (07:23→21:16)
[2017-01-22] MEDS: Polyethylene Glycol 3350 Powder 17 GM Packet PO SCH ×2 (08:25→20:50)
[2017-01-22] MEDS: Morphine 2 MG/ML Syringe IVPUSH PRN (14:24)
[2017-01-22] MEDS ORDERED: Warfarin 2.5 MG Tab PO ONE (16:30)
[2017-01-22] MEDS: Levofloxacin/Dextrose 5%-Water 750 MG in Premix Bag 1 BAG IV SCH (17:06)
[2017-01-22] MEDS: Diltiazem IR 30 MG Tab PO SCH ×2 (17:09→21:38)
--- NOTE | 2017-01-22 17:26 | PCM.PN ---
- General Info Date of Service: 01/22/17 Functional Status: Reports: Pain Controlled, Tolerating Diet, Urinating - Review of Systems General: Reports: Weakness. Denies: Fever, Chills Pulmonary: Reports: Shortness of Breath. Denies: Cough, Sputum, Wheezing Cardiovascular: Reports: Dyspnea on Exertion. Denies: Chest Pain, Palpitations , Orthopnea, PND Gastrointestinal: Reports: No Symptoms Psychiatric: Reports: Confusion Systems Review Comment:: This patient is been relatively stable over the past 24 hours, continues to experience some respiratory compromise and has required intermittent use of the BiPAP. Vital signs have remained stable and he has been afebrile. - Patient Data Vitals - Most Recent: Last Vital Signs Temp 98.6 F 01/22/17 10:00 Pulse 76 01/22/17 15:55 Resp 24 H 01/22/17 15:55 BP 117/60 01/22/17 15:55 Pulse Ox 98 01/22/17 15:55 Weight - Most Recent: 180 lb 1.883 oz I&O - Last 24 Hours: Intake & Output 01/22/17 01/22/17 01/22/17 06:59 14:59 22:59 Intake Total 682 360 Balance 682 360 Lab Results Last 24 Hours: Laboratory Results - last 24 hr 01/22/17 01/22/17 01/22/17 Range/Units 05:15 05:15 05:15 WBC 25.3 H (4.5-11.0) K/uL RBC 3.07 L (4.30-5.90) M/uL Hgb 9.9 L (12.0-15.0) g/dL Hct 29.7 L (40.0-54.0) % MCV 97 (80-98) fL MCH 32 H (27-31) pg MCHC 33 (32-36) % Plt Count 252 (150-400) K/uL Neut % (Auto) 93 H (36-66) % Lymph % (Auto) 2 L (24-44) % Reynolds % (Auto) 6 (2-6) % Eos % (Auto) 0 L (2-4) % Baso % (Auto) 0 (0-1) % PT 32.0 H (9.5-12.0) sec INR 2.86 H (0.80-1.20) Sodium 137 L (140-148) mmol/L Potassium 3.6 (3.6-5.2) mmol/L Chloride 104 (100-108) mmol/L Carbon Dioxide 21 (21-32) mmol/L Anion Gap 15.6 H (5.0-14.0) mmol/L BUN 32 H D (7-18) mg/dL Creatinine 1.1 (0.8-1.3) mg/dL Est Cr Clr Drug Dosing 53.56 mL/min Estimated GFR (MDRD) > 60 (>60) Glucose 162 H (74-106) mg/dL Calcium 8.0 L (8.5-10.1) mg/dL Magnesium 2.3 (1.8-2.4) mg/dL Total Bilirubin 0.7 (0.2-1.0) mg/dL AST 135 H D (15-37) U/L ALT 110 H (12-78) U/L Alkaline Phosphatase 205 H (46-116) U/L Total Protein 7.1 (6.4-8.2) g/dL Albumin 2.2 L (3.4-5.0) g/dL Globulin 4.9 H (2.3-3.5) g/dL Albumin/Globulin Ratio 0.5 L (1.2-2.2) Med Orders - Current: Current Medications Acetaminophen (Tylenol) 650 mg PO Q4H PRN PRN Reason: Pain (Mild 1-3)/fever Last Admin: 01/21/17 21:07 Dose: 650 mg Acetaminophen (Tylenol) 650 mg RECTAL Q4H PRN PRN Reason: Mild pain/fever Albuterol (Proventil Neb Soln) 2.5 mg NEB Q4H PRN PRN Reason: Shortness Of Breath/wheezing Albuterol/Ipratropium (Duoneb 3.0-0.5 Mg/3 Ml) 3 ml NEB QIDRT [facility] Last Admin: 01/22/17 14:46 Dose: 3 ml Bisacodyl (Dulcolax) 5 mg PO DAILY PRN PRN Reason: Constipation Last Admin: 01/22/17 14:27 Dose: 5 mg Diltiazem HCl (Cardizem) 30 mg PO Q6HR [facility] Levofloxacin/Dextrose 750 mg/ (Premix) 150 mls @ 100 mls/hr IV Q24H [facility] Last Admin: 01/22/17 17:06 Dose: 100 mls/hr Meropenem 1 gm/ Sodium (Chloride) 50 mls @ 100 mls/hr IV Q8H [facility] Last Admin: 01/22/17 12:28 Dose: 100 mls/hr Lorazepam (Ativan) 0.5 - 1 mg IVPUSH Q4H PRN PRN Reason: Anxiety Last Admin: 01/22/17 14:15 Dose: 1 mg Morphine Sulfate (Morphine) 2 - 4 mg IVPUSH Q2H PRN PRN Reason: Pain (severe 7-10) Last Admin: 01/22/17 14:24 Dose: 2 mg Ondansetron HCl (Zofran Odt) 4 mg PO Q6H PRN PRN Reason: Nausea able to take PO Ondansetron HCl (Zofran) 4 mg IV Q6H PRN PRN Reason: Nausea/Vomiting Pantoprazole Sodium (Protonix) 40 mg PO BEDTIME [facility] Polyethylene Glycol (Miralax) 17 gm PO DAILY PRN PRN Reason: Constipation Polyethylene Glycol (Miralax) 17 gm PO BID [facility] Last Admin: 01/22/17 08:25 Dose: 17 gm Discontinued Medications Acetaminophen (Tylenol Extra Strength) 1,000 mg PO ONETIME ONE Stop: 01/20/17 16:44 Last Admin: 01/20/17 16:52 Dose: 1,000 mg Albuterol/Ipratropium (Duoneb 3.0-0.5 Mg/3 Ml) 3 ml NEB ONETIME ONE Stop: 01/20/17 15:56 Last Admin: 01/20/17 16:19 Dose: 3 ml Albuterol/Ipratropium (Duoneb 3.0-0.5 Mg/3 Ml) 3 ml NEB QID [facility] Last Admin: 01/21/17 07:31 Dose: Not Given Bisacodyl (Dulcolax) 10 mg RECTAL ONETIME ONE Stop: 01/21/17 11:01 Last Admin: 01/21/17 17:06 Dose: 10 mg Diltiazem HCl (Diltiazem) 10 mg IVPUSH ONETIME ONE Stop: 01/20/17 18:44 Last Admin: 01/20/17 18:46 Dose: 10 mg Levofloxacin/Dextrose 750 mg/ (Premix) 150 mls @ 100 mls/hr IV ONETIME ONE Stop: 01/20/17 18:05 Last Admin: 01/20/17 16:44 Dose: 100 mls/hr Sodium Chloride (Normal Saline) 1,000 mls @ 1,000 mls/hr IV ASDIRECTED [facility] Sodium Chloride (Normal Saline) 1,000 mls @ 125 mls/hr IV ASDIRECTED [facility] Last Admin: 01/21/17 05:15 Dose: 125 mls/hr Sodium Chloride (Normal Saline) 1,000 mls @ 250 mls/hr IV ASDIRECTED [facility] Stop: 01/21/17 00:46 Sodium Chloride (Normal Saline) 2,000 mls @ 999 mls/hr IV .BOLUS ONE Stop: 01/20/17 20:20 Last Admin: 01/20/17 18:33 Dose: 999 mls/hr Sodium Chloride (Normal Saline) 1,000 mls @ 1,000 mls/hr IV ONETIME ONE Stop: 01/20/17 19:31 Last Admin: 01/20/17 18:34 Dose: Not Given Meropenem 1,000 mg/ Sodium (Chloride) 100 mls @ 200 mls/hr IV Q8H [facility] Last Admin: 01/21/17 03:59 Dose: 200 mls/hr Diltiazem HCl 100 mg/ Sodium (Chloride) 100 mls @ 5 mls/hr IV TITRATE [facility]; 5 MG /HR PRN Reason: Protocol Last Admin: 01/22/17 13:07 Dose: 10 mg/hr, 10 mls/hr Sodium Chloride (Normal Saline) 1,000 mls @ 50 mls/hr IV ASDIRECTED [facility] Last Admin: 01/21/17 19:14 Dose: 50 mls/hr Lorazepam (Ativan) 1 mg IVPUSH ONETIME ONE Stop: 01/20/17 17:07 Last Admin: 01/20/17 17:03 Dose: 1 mg Lorazepam (Ativan) Confirm Administered Dose 2 mg .ROUTE .STK-MED ONE Stop: 01/20/17 17:07 Last Admin: 01/20/17 17:25 Dose: Not Given Lorazepam (Ativan) 1 mg IVPUSH ONETIME ONE Stop: 01/20/17 17:41 Last Admin: 01/20/17 17:31 Dose: 1 mg Methylprednisolone Sodium Succinate (Solu-Medrol) 125 mg IVPUSH ONETIME ONE Stop: 01/20/17 16:37 Last Admin: 01/20/17 16:43 Dose: 125 mg Methylprednisolone Sodium Succinate (Solu-Medrol) 62.5 mg IVPUSH Q8H [facility] Last Admin: 01/22/17 08:25 Dose: 62.5 mg Morphine Sulfate (Morphine) Confirm Administered Dose 2 mg .ROUTE .STK-MED ONE Stop: 01/20/17 17:03 Last Admin: 01/21/17 07:35 Dose: Not Given Morphine Sulfate (Morphine) 2 mg IVPUSH ONETIME ONE Stop: 01/20/17 17:02 Last Admin: 01/20/17 17:01 Dose: 2 mg Pantoprazole Sodium (Protonix Iv) 40 mg IVPUSH Q24H [facility] Last Admin: 01/21/17 20:48 Dose: 40 mg Warfarin Sodium (Coumadin) 5 mg PO ONETIME ONE Stop: 01/21/17 11:01 Last Admin: 01/21/17 11:13 Dose: 5 mg Warfarin Sodium (Coumadin) 2.5 mg PO ONETIME ONE Stop: 01/22/17 16:31 - Exam Quality Assessment: Supplemental Oxygen, DVT Prophylaxis General: Alert, Cooperative, Mild Distress Lungs: Rales, Rhonchi Cardiovascular: Regular Rate, No Murmurs, Irregular Rhythm GI/Abdominal Exam: Normal Bowel Sounds, Soft, Non-Tender, No Distention Extremities: Normal Inspection, Non-Tender Skin: Warm, Dry, Intact - Problem List Review Problem List Initiated/Reviewed/Updated: Yes - My Orders Last 24 Hours: My Active Orders 01/22/17 15:54 Convert IV to Saline Lock [OM.PC] Routine 01/22/17 15:55 Vital Signs [RC] Q2H 01/22/17 16:00 Diltiazem [Cardizem] 30 mg PO Q6HR 01/23/17 05:00 CBC WITH AUTO DIFF [HEME] Timed COMPREHENSIVE METABOLIC PN,CMP [CHEM] Timed INR,PT,PROTHROMBIN TIME [COAG] Timed 01/23/17 21:00 Pantoprazole [ProTONIX] 40 mg PO BEDTIME - Plan Plan:: Assessment and plan - Probable aspiration pneumonia with hypoxic respiratory failure and sepsis - improved since admission, continues to require intermittent use of noninvasive ventilation. Cultures remain negative thus far -Levofloxacin and meropenem -Noninvasive ventilation -Nebs -Discontinue Solu-Medrol -Follow-up cultures -Soft diet with nectar thickened liquids Atrial fibrillation with rapid ventricular response - rate control has been adequate, continue diltiazem infusion -Discontinue diltiazem drip -Cardizem 30 mg by mouth every 6 hours -Cardiac monitoring -Optimize electrolytes Possible cholecystitis with cholelithiasis - gallbladder appears distended with mildly thickened gallbladder wall based on ultrasound. Patient is too ill to have any sort of intervention at this time. Infectious causes should be covered by antibiotics as above. 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 Had been on nectar thick liquids but was recently transitioned to regular liquids prior to becoming ill. -Continue medical management -Speech therapy consult to assess swallowing Constipation-chronic problem -Miralax twice daily -Dulcolax suppository Palliative care-family is in agreement with current management with would not want further aggressive interventions including mechanical ventilation. Maintenance issues - - DVT prophylaxis - warfarin - GI prophylaxis - PPI - Nutrition - nothing by mouth - Castillo catheter - placed in the emergency room CODE STATUS - DNR/DNI Admission justification - This patient will be admitted for inpatient services and is medically appropriate meeting medical necessity for inpatient admission as outlined in my documentation. I reasonably expect the patient will require inpatient services that span a period time over 2 midnights. I reasonably expect this patient to be discharged or transferred within 96 hours [facility]. Disposition - [facility] to the [facility] if he survives the hospital stay Primary care physician - Dr Dominguez
[2017-01-22] MEDS: Acetaminophen 325 MG Tab PO PRN (23:33)
[2017-01-23] MEDS: Morphine 2 MG/ML Syringe IVPUSH PRN ×4 (01:05→22:48)
[2017-01-23] MEDS: LORazepam 2 MG/ML MDV IVPUSH PRN ×3 (01:58→22:44)
[2017-01-23] MEDS: Diltiazem IR 30 MG Tab PO SCH ×4 (03:07→21:01)
[2017-01-23] MEDS: Albuterol/Ipratropium 3.0-0.5 MG/3 ML Neb Soln NEB SCH ×4 (07:42→20:21)
[2017-01-23] MEDS ORDERED: Sodium Phosphate,Monobasic/Sodium Phosphate,Dibasic Enema 133 ML Bottle RECTAL ONE (09:27)
[2017-01-23] MEDS: Polyethylene Glycol 3350 Powder 17 GM Packet PO SCH ×2 (09:28→20:59)
--- NOTE | 2017-01-23 09:37 | PCM.PN ---
- General Info Date of Service: 01/23/17 Functional Status: Reports: Pain Controlled, Tolerating Diet - Review of Systems General: Reports: Weakness. Denies: Fever, Chills Pulmonary: Reports: Shortness of Breath, Cough, Wheezing. Denies: Sputum, Hemoptysis Cardiovascular: Reports: Dyspnea on Exertion. Denies: Chest Pain, Palpitations , Orthopnea, PND Gastrointestinal: Reports: No Symptoms Psychiatric: Reports: Confusion Systems Review Comment:: This patient continues to have ongoing difficulty with respiratory compromise and has required intermittent use of the BiPAP. This morning his respiratory rate is increased in heart rate is up and will be placed back on BiPAP through the morning, reassess later today. Blood pressure is been stable and he has remained afebrile. - Patient Data Vitals - Most Recent: Last Vital Signs Temp 98.3 F 01/23/17 03:00 Pulse 116 H 01/23/17 08:00 Resp 31 H 01/23/17 08:00 BP 138/85 01/23/17 08:00 Pulse Ox 98 01/23/17 08:00 Weight - Most Recent: 180 lb 1.883 oz I&O - Last 24 Hours: Intake & Output 01/22/17 01/23/17 01/23/17 22:59 06:59 14:59 Intake Total 1093 340 Balance 1093 340 Lab Results Last 24 Hours: Laboratory Results - last 24 hr 01/23/17 01/23/17 01/23/17 Range/Units 05:58 05:58 05:58 WBC 25.0 H (4.5-11.0) K/uL RBC 3.05 L (4.30-5.90) M/uL Hgb 10.1 L (12.0-15.0) g/dL Hct 29.7 L (40.0-54.0) % MCV 97 (80-98) fL MCH 33 H (27-31) pg MCHC 34 (32-36) % Plt Count 276 (150-400) K/uL Neut % (Auto) 93 H (36-66) % Lymph % (Auto) 2 L (24-44) % [place] % (Auto) 5 (2-6) % Eos % (Auto) 0 L (2-4) % Baso % (Auto) 0 (0-1) % PT 44.4 H (9.5-12.0) sec INR 3.92 H (0.80-1.20) Sodium 137 L (140-148) mmol/L Potassium 4.3 (3.6-5.2) mmol/L Chloride 105 (100-108) mmol/L Carbon Dioxide 23 (21-32) mmol/L Anion Gap 13.3 (5.0-14.0) mmol/L BUN 40 H (7-18) mg/dL Creatinine 1.0 (0.8-1.3) mg/dL Est Cr Clr Drug Dosing 58.92 mL/min Estimated GFR (MDRD) > 60 (>60) Glucose 154 H (74-106) mg/dL Calcium 8.3 L (8.5-10.1) mg/dL Total Bilirubin 0.5 (0.2-1.0) mg/dL AST 62 H (15-37) U/L ALT 87 H (12-78) U/L Alkaline Phosphatase 176 H (46-116) U/L Total Protein 7.0 (6.4-8.2) g/dL Albumin 2.2 L (3.4-5.0) g/dL Globulin 4.8 H (2.3-3.5) g/dL Albumin/Globulin Ratio 0.5 L (1.2-2.2) Med Orders - Current: Current Medications Acetaminophen (Tylenol) 650 mg PO Q4H PRN PRN Reason: Pain (Mild 1-3)/fever Last Admin: 01/22/17 23:33 Dose: 650 mg Acetaminophen (Tylenol) 650 mg RECTAL Q4H PRN PRN Reason: Mild pain/fever Albuterol (Proventil Neb Soln) 2.5 mg NEB Q4H PRN PRN Reason: Shortness Of Breath/wheezing Albuterol/Ipratropium (Duoneb 3.0-0.5 Mg/3 Ml) 3 ml NEB QIDRT [facility] Last Admin: 01/23/17 07:42 Dose: 3 ml Bisacodyl (Dulcolax) 5 mg PO DAILY PRN PRN Reason: Constipation Last Admin: 01/22/17 14:27 Dose: 5 mg Diltiazem HCl (Cardizem) 60 mg PO Q6HR [facility] Levofloxacin/Dextrose 750 mg/ (Premix) 150 mls @ 100 mls/hr IV Q24H [facility] Last Admin: 01/22/17 17:06 Dose: 100 mls/hr Meropenem 1 gm/ Sodium (Chloride) 50 mls @ 100 mls/hr IV Q8H [facility] Last Admin: 01/23/17 03:07 Dose: 100 mls/hr Lorazepam (Ativan) 0.5 - 1 mg IVPUSH Q4H PRN PRN Reason: Anxiety Last Admin: 01/23/17 09:25 Dose: 1 mg Morphine Sulfate (Morphine) 2 - 4 mg IVPUSH Q2H PRN PRN Reason: Pain (severe 7-10) Last Admin: 01/23/17 09:26 Dose: 2 mg Ondansetron HCl (Zofran Odt) 4 mg PO Q6H PRN PRN Reason: Nausea able to take PO Ondansetron HCl (Zofran) 4 mg IV Q6H PRN PRN Reason: Nausea/Vomiting Pantoprazole Sodium (Protonix) 40 mg PO BEDTIME [facility] Polyethylene Glycol (Miralax) 17 gm PO DAILY PRN PRN Reason: Constipation Polyethylene Glycol (Miralax) 17 gm PO BID [facility] Last Admin: 01/23/17 09:28 Dose: 17 gm Sodium Biphosphate/Sodium Phosphate (Fleet Enema) 133 ml RECTAL ONETIME ONE Stop: 01/23/17 09:28 Discontinued Medications Acetaminophen (Tylenol Extra Strength) 1,000 mg PO ONETIME ONE Stop: 01/20/17 16:44 Last Admin: 01/20/17 16:52 Dose: 1,000 mg Albuterol/Ipratropium (Duoneb 3.0-0.5 Mg/3 Ml) 3 ml NEB ONETIME ONE Stop: 01/20/17 15:56 Last Admin: 01/20/17 16:19 Dose: 3 ml Albuterol/Ipratropium (Duoneb 3.0-0.5 Mg/3 Ml) 3 ml NEB QID [facility] Last Admin: 01/21/17 07:31 Dose: Not Given Bisacodyl (Dulcolax) 10 mg RECTAL ONETIME ONE Stop: 01/21/17 11:01 Last Admin: 01/21/17 17:06 Dose: 10 mg Diltiazem HCl (Diltiazem) 10 mg IVPUSH ONETIME ONE Stop: 01/20/17 18:44 Last Admin: 01/20/17 18:46 Dose: 10 mg Diltiazem HCl (Cardizem) 30 mg PO Q6HR [facility] Last Admin: 01/23/17 03:07 Dose: 30 mg Levofloxacin/Dextrose 750 mg/ (Premix) 150 mls @ 100 mls/hr IV ONETIME ONE Stop: 01/20/17 18:05 Last Admin: 01/20/17 16:44 Dose: 100 mls/hr Sodium Chloride (Normal Saline) 1,000 mls @ 1,000 mls/hr IV ASDIRECTED [facility] Sodium Chloride (Normal Saline) 1,000 mls @ 125 mls/hr IV ASDIRECTED [facility] Last Admin: 01/21/17 05:15 Dose: 125 mls/hr Sodium Chloride (Normal Saline) 1,000 mls @ 250 mls/hr IV ASDIRECTED [facility] Stop: 01/21/17 00:46 Sodium Chloride (Normal Saline) 2,000 mls @ 999 mls/hr IV .BOLUS ONE Stop: 01/20/17 20:20 Last Admin: 01/20/17 18:33 Dose: 999 mls/hr Sodium Chloride (Normal Saline) 1,000 mls @ 1,000 mls/hr IV ONETIME ONE Stop: 01/20/17 19:31 Last Admin: 01/20/17 18:34 Dose: Not Given Meropenem 1,000 mg/ Sodium (Chloride) 100 mls @ 200 mls/hr IV Q8H [facility] Last Admin: 01/21/17 03:59 Dose: 200 mls/hr Diltiazem HCl 100 mg/ Sodium (Chloride) 100 mls @ 5 mls/hr IV TITRATE [facility]; 5 MG /HR PRN Reason: Protocol Last Admin: 01/22/17 13:07 Dose: 10 mg/hr, 10 mls/hr Sodium Chloride (Normal Saline) 1,000 mls @ 50 mls/hr IV ASDIRECTED [facility] Last Admin: 01/21/17 19:14 Dose: 50 mls/hr Lorazepam (Ativan) 1 mg IVPUSH ONETIME ONE Stop: 01/20/17 17:07 Last Admin: 01/20/17 17:03 Dose: 1 mg Lorazepam (Ativan) Confirm Administered Dose 2 mg .ROUTE .STK-MED ONE Stop: 01/20/17 17:07 Last Admin: 01/20/17 17:25 Dose: Not Given Lorazepam (Ativan) 1 mg IVPUSH ONETIME ONE Stop: 01/20/17 17:41 Last Admin: 01/20/17 17:31 Dose: 1 mg Methylprednisolone Sodium Succinate (Solu-Medrol) 125 mg IVPUSH ONETIME ONE Stop: 01/20/17 16:37 Last Admin: 01/20/17 16:43 Dose: 125 mg Methylprednisolone Sodium Succinate (Solu-Medrol) 62.5 mg IVPUSH Q8H [facility] Last Admin: 01/22/17 08:25 Dose: 62.5 mg Morphine Sulfate (Morphine) Confirm Administered Dose 2 mg .ROUTE .STK-MED ONE Stop: 01/20/17 17:03 Last Admin: 01/21/17 07:35 Dose: Not Given Morphine Sulfate (Morphine) 2 mg IVPUSH ONETIME ONE Stop: 01/20/17 17:02 Last Admin: 01/20/17 17:01 Dose: 2 mg Pantoprazole Sodium (Protonix Iv) 40 mg IVPUSH Q24H [facility] Last Admin: 01/21/17 20:48 Dose: 40 mg Warfarin Sodium (Coumadin) 5 mg PO ONETIME ONE Stop: 01/21/17 11:01 Last Admin: 01/21/17 11:13 Dose: 5 mg Warfarin Sodium (Coumadin) 2.5 mg PO ONETIME ONE Stop: 01/22/17 16:31 Last Admin: 01/22/17 17:10 Dose: 2.5 mg - Exam Quality Assessment: Supplemental Oxygen (BiPAP), DVT Prophylaxis General: Alert, Cooperative, Moderate Distress Lungs: Decreased Breath Sounds, Wheezing. No: Crackles, Rales, Rhonchi, Rub, Stridor Cardiovascular: Regular Rate, Regular Rhythm, No Murmurs GI/Abdominal Exam: Normal Bowel Sounds, Soft, Non-Tender, No Distention Extremities: Normal Inspection, No Pedal Edema Skin: Warm, Dry, Intact - Problem List Review Problem List Initiated/Reviewed/Updated: Yes - My Orders Last 24 Hours: My Active Orders 01/22/17 15:54 Convert IV to Saline Lock [OM.PC] Routine 01/22/17 15:55 Vital Signs [RC] Q2H 01/22/17 17:41 Consult to Speech Language Pathology [MECHANICAL PROJECT MANAGER Evaluation and Treatment] [CONS] Routine 01/23/17 09:23 Diltiazem [Cardizem] 60 mg PO Q6HR 01/23/17 09:27 Na Phos,M-B/Na Phos,DI-B [Fleet Enema] 133 ml RECTAL ONETIME ONE 01/23/17 21:00 Pantoprazole [ProTONIX] 40 mg PO BEDTIME 01/24/17 05:00 CBC WITH AUTO DIFF [HEME] Timed COMPREHENSIVE METABOLIC PN,CMP [CHEM] Timed INR,PT,PROTHROMBIN TIME [COAG] Timed MAGNESIUM [CHEM] Timed 01/24/17 08:00 Modified Barium Swallow Study [Swallowing Function w Video] [CR] Routine - Plan Plan:: Assessment and plan - Probable aspiration pneumonia with hypoxic respiratory failure and sepsis - improved since admission, continues to require intermittent use of noninvasive ventilation. Cultures remain negative thus far -Levofloxacin and meropenem -Noninvasive ventilation -Nebs -Solu-Medrol 40 mg IV every 12 hours -Follow-up cultures -Soft diet with nectar thickened liquids -Video swallowing study tomorrow Atrial fibrillation with rapid ventricular response - rate control has been adequate, continue diltiazem infusion -Discontinue diltiazem drip -Cardizem 60 mg by mouth every 6 hours -Cardiac monitoring -Optimize electrolytes Possible cholecystitis with cholelithiasis - gallbladder appears distended with mildly thickened gallbladder wall based on ultrasound. Patient is too ill to have any sort of intervention at this time. Infectious causes should be covered by antibiotics as above. 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 Had been on nectar thick liquids but was recently transitioned to regular liquids prior to becoming ill. -Continue medical management -Video swallowing study tomorrow Constipation-chronic problem -Miralax twice daily -Dulcolax suppository Palliative care-family is in agreement with current management with would not want further aggressive interventions including mechanical ventilation. Maintenance issues - - DVT prophylaxis - warfarin - GI prophylaxis - PPI - Nutrition - nothing by mouth - Castillo catheter - placed in the emergency room CODE STATUS - DNR/DNI Admission justification - This patient will be admitted for inpatient services and is medically appropriate meeting medical necessity for inpatient admission as outlined in my documentation. I reasonably expect the patient will require inpatient services that span a period time over 2 midnights. I reasonably expect this patient to be discharged or transferred within 96 hours after admission to the [facility]. Disposition - anticipate discharge to the intermediate if he survives the hospital stay Primary care physician - Dr Dominguez
[2017-01-23] MEDS: methylPREDNISolone Sodium Succinate 40 MG/1 ML SDV IVPUSH SCH ×2 (10:07→21:01)
[2017-01-23] MEDS: Levofloxacin/Dextrose 5%-Water 750 MG in Premix Bag 1 BAG IV SCH (17:15)
[2017-01-23] MEDS: Pantoprazole 40 MG Tab.CR PO SCH (21:01)
[2017-01-24] MEDS: Morphine 2 MG/ML Syringe IVPUSH PRN ×2 (03:45→22:17)
[2017-01-24] MEDS: Diltiazem IR 30 MG Tab PO SCH ×4 (03:46→23:35)
[2017-01-24] MEDS ORDERED: Phytonadione 1 MG in Sodium Chloride 0.9% 50 ML IV ONE (05:57)
[2017-01-24] MEDS: Albuterol/Ipratropium 3.0-0.5 MG/3 ML Neb Soln NEB SCH ×4 (07:21→21:58)
[2017-01-24] MEDS ORDERED: Sodium Phosphate,Monobasic/Sodium Phosphate,Dibasic Enema 133 ML Bottle RECTAL ONE (08:50)
[2017-01-24] MEDS ORDERED: Magnesium Hydroxide 400 MG/5 ML Susp 30 ML Cup PO PRN (08:50)
[2017-01-24] MEDS: Polyethylene Glycol 3350 Powder 17 GM Packet PO SCH ×2 (08:51→21:55)
--- NOTE | 2017-01-24 08:59 | PCM.PN ---
- General Info Date of Service: 01/24/17 Functional Status: Reports: Tolerating Diet - Review of Systems General: Reports: Weakness. Denies: Fever, Chills Pulmonary: Reports: No Symptoms Cardiovascular: Reports: No Symptoms Gastrointestinal: Reports: No Symptoms Systems Review Comment:: This patient has continued to require noninvasive positive pressure ventilation because of increase in respiratory rate and tachycardia when he is off of the support. He has been afebrile white count remains elevated although some of this is likely related to ongoing therapy with Solu-Medrol. - Patient Data Vitals - Most Recent: Last Vital Signs Temp 97.7 F 01/24/17 08:00 Pulse 108 H 01/24/17 08:00 Resp 23 H 01/24/17 08:00 BP 129/87 01/24/17 08:00 Pulse Ox 95 01/24/17 08:00 Weight - Most Recent: 180 lb 1.883 oz I&O - Last 24 Hours: Intake & Output 01/23/17 01/24/17 01/24/17 22:59 06:59 14:59 Intake Total 270 460 Balance 270 460 Lab Results Last 24 Hours: Laboratory Results - last 24 hr 01/24/17 01/24/17 01/24/17 Range/Units 04:59 04:59 04:59 WBC 24.9 H (4.5-11.0) K/uL RBC 3.26 L (4.30-5.90) M/uL Hgb 10.6 L (12.0-15.0) g/dL Hct 31.7 L (40.0-54.0) % MCV 97 (80-98) fL MCH 33 H (27-31) pg MCHC 33 (32-36) % Plt Count 288 (150-400) K/uL Add Manual Diff Yes Neutrophils % (Manual) 87 H (36-66) % Band Neutrophils % 5 (5-11) % Lymphocytes % (Manual) 4 L (24-44) % Monocytes % (Manual) 4 (2-6) % PT 55.8 H (9.5-12.0) sec INR 4.88 H* (0.80-1.20) Sodium 144 (140-148) mmol/L Potassium 4.3 (3.6-5.2) mmol/L Chloride 109 H (100-108) mmol/L Carbon Dioxide 25 (21-32) mmol/L Anion Gap 14.3 H (5.0-14.0) mmol/L BUN 39 H (7-18) mg/dL Creatinine 1.0 (0.8-1.3) mg/dL Est Cr Clr Drug Dosing 58.92 mL/min Estimated GFR (MDRD) > 60 (>60) Glucose 179 H (74-106) mg/dL Calcium 8.1 L (8.5-10.1) mg/dL Magnesium 2.6 H (1.8-2.4) mg/dL Total Bilirubin 0.5 (0.2-1.0) mg/dL AST 46 H (15-37) U/L ALT 79 H (12-78) U/L Alkaline Phosphatase 161 H (46-116) U/L Total Protein 7.1 (6.4-8.2) g/dL Albumin 2.2 L (3.4-5.0) g/dL Globulin 4.9 H (2.3-3.5) g/dL Albumin/Globulin Ratio 0.5 L (1.2-2.2) Med Orders - Current: Current Medications Acetaminophen (Tylenol) 650 mg PO Q4H PRN PRN Reason: Pain (Mild 1-3)/fever Last Admin: 01/22/17 23:33 Dose: 650 mg Acetaminophen (Tylenol) 650 mg RECTAL Q4H PRN PRN Reason: Mild pain/fever Albuterol (Proventil Neb Soln) 2.5 mg NEB Q4H PRN PRN Reason: Shortness Of Breath/wheezing Albuterol/Ipratropium (Duoneb 3.0-0.5 Mg/3 Ml) 3 ml NEB QIDRT [facility] Last Admin: 01/24/17 07:21 Dose: 3 ml Bisacodyl (Dulcolax) 5 mg PO DAILY PRN PRN Reason: Constipation Last Admin: 01/22/17 14:27 Dose: 5 mg Diltiazem HCl (Cardizem) 60 mg PO Q6HR [facility] Last Admin: 01/24/17 03:46 Dose: 60 mg Levofloxacin/Dextrose 750 mg/ (Premix) 150 mls @ 100 mls/hr IV Q24H [facility] Last Admin: 01/23/17 17:15 Dose: 100 mls/hr Meropenem 1 gm/ Sodium (Chloride) 50 mls @ 100 mls/hr IV Q8H [facility] Last Admin: 01/24/17 03:46 Dose: 100 mls/hr Lorazepam (Ativan) 0.5 - 1 mg IVPUSH Q4H PRN PRN Reason: Anxiety Last Admin: 01/23/17 22:44 Dose: 1 mg Magnesium Hydroxide (Milk Of Magnesia) 30 ml PO Q6H PRN PRN Reason: Constipation Methylprednisolone Sodium Succinate (Solu-Medrol) 40 mg IVPUSH Q12H [facility] Last Admin: 01/23/17 21:01 Dose: 40 mg Morphine Sulfate (Morphine) 2 - 4 mg IVPUSH Q2H PRN PRN Reason: Pain (severe 7-10) Last Admin: 01/24/17 03:45 Dose: 2 mg Ondansetron HCl (Zofran Odt) 4 mg PO Q6H PRN PRN Reason: Nausea able to take PO Ondansetron HCl (Zofran) 4 mg IV Q6H PRN PRN Reason: Nausea/Vomiting Pantoprazole Sodium (Protonix) 40 mg PO BEDTIME [facility] Last Admin: 01/23/17 21:01 Dose: 40 mg Polyethylene Glycol (Miralax) 17 gm PO DAILY PRN PRN Reason: Constipation Polyethylene Glycol (Miralax) 17 gm PO BID [facility] Last Admin: 01/24/17 08:51 Dose: 17 gm Discontinued Medications Acetaminophen (Tylenol Extra Strength) 1,000 mg PO ONETIME ONE Stop: 01/20/17 16:44 Last Admin: 01/20/17 16:52 Dose: 1,000 mg Albuterol/Ipratropium (Duoneb 3.0-0.5 Mg/3 Ml) 3 ml NEB ONETIME ONE Stop: 01/20/17 15:56 Last Admin: 01/20/17 16:19 Dose: 3 ml Albuterol/Ipratropium (Duoneb 3.0-0.5 Mg/3 Ml) 3 ml NEB QID [facility] Last Admin: 01/21/17 07:31 Dose: Not Given Bisacodyl (Dulcolax) 10 mg RECTAL ONETIME ONE Stop: 01/21/17 11:01 Last Admin: 01/21/17 17:06 Dose: 10 mg Diltiazem HCl (Diltiazem) 10 mg IVPUSH ONETIME ONE Stop: 01/20/17 18:44 Last Admin: 01/20/17 18:46 Dose: 10 mg Diltiazem HCl (Cardizem) 30 mg PO Q6HR [facility] Last Admin: 01/23/17 03:07 Dose: 30 mg Levofloxacin/Dextrose 750 mg/ (Premix) 150 mls @ 100 mls/hr IV ONETIME ONE Stop: 01/20/17 18:05 Last Admin: 01/20/17 16:44 Dose: 100 mls/hr Sodium Chloride (Normal Saline) 1,000 mls @ 1,000 mls/hr IV ASDIRECTED [facility] Sodium Chloride (Normal Saline) 1,000 mls @ 125 mls/hr IV ASDIRECTED [facility] Last Admin: 01/21/17 05:15 Dose: 125 mls/hr Sodium Chloride (Normal Saline) 1,000 mls @ 250 mls/hr IV ASDIRECTED [facility] Stop: 01/21/17 00:46 Sodium Chloride (Normal Saline) 2,000 mls @ 999 mls/hr IV .BOLUS ONE Stop: 01/20/17 20:20 Last Admin: 01/20/17 18:33 Dose: 999 mls/hr Sodium Chloride (Normal Saline) 1,000 mls @ 1,000 mls/hr IV ONETIME ONE Stop: 01/20/17 19:31 Last Admin: 01/20/17 18:34 Dose: Not Given Meropenem 1,000 mg/ Sodium (Chloride) 100 mls @ 200 mls/hr IV Q8H [facility] Last Admin: 01/21/17 03:59 Dose: 200 mls/hr Diltiazem HCl 100 mg/ Sodium (Chloride) 100 mls @ 5 mls/hr IV TITRATE [facility]; 5 MG /HR PRN Reason: Protocol Last Admin: 01/22/17 13:07 Dose: 10 mg/hr, 10 mls/hr Sodium Chloride (Normal Saline) 1,000 mls @ 50 mls/hr IV ASDIRECTED [facility] Last Admin: 01/21/17 19:14 Dose: 50 mls/hr Phytonadione 1 mg/ Sodium (Chloride) 50.5 mls @ 100 mls/hr IV ONETIME ONE Stop: 01/24/17 06:27 Last Admin: 01/24/17 06:30 Dose: 100 mls/hr Lorazepam (Ativan) 1 mg IVPUSH ONETIME ONE Stop: 01/20/17 17:07 Last Admin: 01/20/17 17:03 Dose: 1 mg Lorazepam (Ativan) Confirm Administered Dose 2 mg .ROUTE .STK-MED ONE Stop: 01/20/17 17:07 Last Admin: 01/20/17 17:25 Dose: Not Given Lorazepam (Ativan) 1 mg IVPUSH ONETIME ONE Stop: 01/20/17 17:41 Last Admin: 01/20/17 17:31 Dose: 1 mg Methylprednisolone Sodium Succinate (Solu-Medrol) 125 mg IVPUSH ONETIME ONE Stop: 01/20/17 16:37 Last Admin: 01/20/17 16:43 Dose: 125 mg Methylprednisolone Sodium Succinate (Solu-Medrol) 62.5 mg IVPUSH Q8H [facility] Last Admin: 01/22/17 08:25 Dose: 62.5 mg Morphine Sulfate (Morphine) Confirm Administered Dose 2 mg .ROUTE .STK-MED ONE Stop: 01/20/17 17:03 Last Admin: 01/21/17 07:35 Dose: Not Given Morphine Sulfate (Morphine) 2 mg IVPUSH ONETIME ONE Stop: 01/20/17 17:02 Last Admin: 01/20/17 17:01 Dose: 2 mg Pantoprazole Sodium (Protonix Iv) 40 mg IVPUSH Q24H [facility] Last Admin: 01/21/17 20:48 Dose: 40 mg Sodium Biphosphate/Sodium Phosphate (Fleet Enema) 133 ml RECTAL ONETIME ONE Stop: 01/23/17 09:28 Last Admin: 01/23/17 10:06 Dose: 133 ml Sodium Biphosphate/Sodium Phosphate (Fleet Enema) 133 ml RECTAL ONETIME ONE Stop: 01/24/17 08:51 Warfarin Sodium (Coumadin) 5 mg PO ONETIME ONE Stop: 01/21/17 11:01 Last Admin: 01/21/17 11:13 Dose: 5 mg Warfarin Sodium (Coumadin) 2.5 mg PO ONETIME ONE Stop: 01/22/17 16:31 Last Admin: 01/22/17 17:10 Dose: 2.5 mg - Exam General: Alert, Cooperative, Mild Distress Lungs: Clear to Auscultation, Normal Respiratory Effort, Decreased Breath Sounds. No: Rales, Rhonchi, Rub, Stridor, Wheezing Cardiovascular: Regular Rate, Regular Rhythm, No Murmurs GI/Abdominal Exam: Normal Bowel Sounds, Soft, Non-Tender, Distended Back Exam: Normal Inspection, Full Range of Motion Extremities: Normal Inspection, No Pedal Edema - Problem List Review Problem List Initiated/Reviewed/Updated: Yes - My Orders Last 24 Hours: My Active Orders 01/23/17 09:23 Diltiazem [Cardizem] 60 mg PO Q6HR 01/23/17 10:00 methylPREDNISolone Sod Succ [Solu-MEDROL] 40 mg IVPUSH Q12H 01/23/17 21:00 Pantoprazole [ProTONIX] 40 mg PO BEDTIME 01/24/17 08:00 Modified Barium Swallow Study [Swallowing Function w Video] [CR] Routine 01/24/17 08:50 Magnesium Hydroxide [Milk of Magnesia] 30 ml PO Q6H PRN 01/24/17 08:53 Chest 1V Frontal [CR] Urgent 01/25/17 05:00 CBC WITH AUTO DIFF [HEME] Timed COMPREHENSIVE METABOLIC PN,CMP [CHEM] Timed INR,PT,PROTHROMBIN TIME [COAG] Timed - Plan Plan:: Assessment and plan - Probable aspiration pneumonia with hypoxic respiratory failure and sepsis -no fevers, white count remains elevated although likely secondary to Solu-Medrol. Over the past few days has not shown significant improvement in respiratory status despite ongoing therapy. -Repeat chest x-ray -Levofloxacin and meropenem -Noninvasive ventilation -Nebs -Solu-Medrol 40 mg IV every 12 hours -Follow-up cultures -Soft diet with nectar thickened liquids -Video swallowing study today Atrial fibrillation with rapid ventricular response - rate control has been adequate, he has been transitioned to oral Cardizem -Cardizem 60 mg by mouth every 6 hours -Cardiac monitoring -Optimize electrolytes Possible cholecystitis with cholelithiasis - gallbladder appears distended with mildly thickened gallbladder wall based on ultrasound. Patient is too ill to have any sort of intervention at this time. Infectious causes should be covered by antibiotics as above. 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 Had been on nectar thick liquids but was recently transitioned to regular liquids prior to becoming ill. -Continue medical management -Video swallowing study tomorrow Constipation-chronic problem -Miralax twice daily -Fleet enema today Palliative care-family is in agreement with current management with would not want further aggressive interventions including mechanical ventilation. Maintenance issues - - DVT prophylaxis - warfarin - GI prophylaxis - PPI - Nutrition - nothing by mouth - Castillo catheter - placed in the emergency room CODE STATUS - DNR/DNI Admission justification - This patient will be admitted for inpatient services and is medically appropriate meeting medical necessity for inpatient admission as outlined in my documentation. I reasonably expect the patient will require inpatient services that span a period time over 2 midnights. I reasonably expect this patient to be discharged or transferred within 96 hours after admission to the [facility]. Disposition - anticipate discharge to the residential if he survives the hospital stay Primary care physician - Dr Dominguez
[2017-01-24] MEDS: methylPREDNISolone Sodium Succinate 40 MG/1 ML SDV IVPUSH SCH ×2 (10:19→21:58)
--- NOTE | 2017-01-24 11:59 | CR ---
Chest 1V Frontal HISTORY: Follow up infiltrate COMPARISON: 01/20/2017 FINDINGS: Lungs appear clear and normally aerated. Nonspecific elevation of the right hemidiaphragm is stable. Cardiomediastinal silhouette is within normal limits for the AP, portable technique atherosclerotic aorta is redemonstrated.. No vascular redistribution or pleural fluid can be seen. Atherosclerotic aorta is redemonstrated. Bony structures and soft tissues are unremarkable. IMPRESSION: No acute chest abnormality or significant interval change is identified.
[2017-01-24] MEDS: LORazepam 2 MG/ML MDV IVPUSH PRN ×2 (12:28→20:52)
[2017-01-24] MEDS ORDERED: Barium Sulfate 60% w/w Esophageal Crm 454 GM Tube PO PRN (12:49)
[2017-01-24] MEDS ORDERED: Barium Sulfate 98% Powder for Susp 340 GM Bottle PO PRN (12:49)
--- NOTE | 2017-01-24 15:03 | CR ---
Swallowing Function w Video HISTORY: Aspiration pneumonia Video fluoroscopic modified barium swallow study was obtained with the speech therapist and recorded with the patient swallowing various consistencies in the lateral projection. FINDINGS: Exam is limited as it cannot be positional due to his clinical status. There is preswallow spilling of contrast into the hypopharynx with most swallows and mildly delayed initiation of the s wallowing reflex mechanism. No nasopharyngeal reflux or aspiration was demonstrated during the exam. Pharyngeal constrictor function appears satisfactory. Elevation of soft palate appears satisfactory . IMPRESSION: Preswallow spilling of contrast into the hypopharynx on multiple occasions during the ex am with multiple consistencies. No laryngeal penetration or aspiration occurred during the exam.
[2017-01-24] MEDS ORDERED: Magnesium Citrate Solution 296 ML Bottle PO ONE (16:15)
[2017-01-24] MEDS ORDERED: Sodium Chloride 0.9% 1,000 ML IV SCH (18:45)
[2017-01-24] MEDS: Levofloxacin/Dextrose 5%-Water 750 MG in Premix Bag 1 BAG IV SCH (20:04)
[2017-01-24] MEDS ORDERED: Sodium Chloride 0.9% 10 ML Syringe FLUSH PRN (21:05)
[2017-01-24] MEDS ORDERED: Iopamidol 612 MG/ML 150 ML Bottle IV SCH (21:15)
[2017-01-24] MEDS: Pantoprazole 40 MG Tab.CR PO SCH (21:55)
[2017-01-24] MEDS ORDERED: Morphine 2 MG/ML Syringe IVPUSH PRN (23:49)
[2017-01-25] MEDS ORDERED: Benzocaine/Cetylpyridinium/Menthol Lozenge MUCMEM PRN (01:46)
[2017-01-25 12:05] VITALS: BP 139/87
--- NOTE | 2017-01-25 13:53 | PCM.DCSUM1 ---
Discharge Summary - Hospital Course Brief History: Mr. White is an 82-year-old gentleman who was admitted through the emergency department with hypoxic respiratory failure secondary to aspiration pneumonia. - Discharge Data Discharge Date: 01/25/17 Discharge Disposition: DC/Tfer to SNF 03 Condition: Critical - Discharge Diagnosis/Problem(s) (1) Aspiration pneumonia SNOMED Code(s): 832818924 ICD Code: J69.0 - PNEUMONITIS DUE TO INHALATION OF FOOD AND VOMIT Status: Acute Current Visit: Yes Qualifiers: Aspiration pneumonia type: due to regurgitated food Laterality: right Lung location: lower lobe of lung Qualified Code(s): J69.0 - Pneumonitis due to inhalation of food and vomit (2) Acute respiratory failure with hypoxia SNOMED Code(s): 93973600, 762505200 ICD Code: J96.01 - ACUTE RESPIRATORY FAILURE WITH HYPOXIA Status: Acute Current Visit: Yes (3) Cholecystitis with cholelithiasis SNOMED Code(s): 118915843, 024474696 ICD Code: K80.10 - CALCULUS OF GALLBLADDER W CHRONIC CHOLECYST W/O OBSTRUCTION Status: Suspected Current Visit: Yes Qualifiers: Cholelithiasis location: gallbladder Cholecystitis acuity: acute Biliary obstruction: without biliary obstruction Qualified Code(s): K80.00 - Calculus of gallbladder with acute cholecystitis without obstruction (4) Cerebrovascular disease SNOMED Code(s): 48007992 ICD Code: I67.9 - CEREBROVASCULAR DISEASE, UNSPECIFIED Status: Acute Current Visit: Yes (5) Atrial fibrillation with rapid ventricular response SNOMED Code(s): 854285080256795 ICD Code: I48.91 - UNSPECIFIED ATRIAL FIBRILLATION Status: Acute Current Visit: Yes - Patient Summary/Data Consults: Consultations 01/22/17 17:41 Consult to Speech Language Pathology [ESTIMATOR Evaluation and Treatment] [CONS] Routine Please Evaluate and Treat ESTIMATOR Reason for Consult: Assess swallowing for aspiration This query below is only for informational purposes and is not editable. Admission Diagnosis/Problem: Aspiration pneumonia Hospital Course: Mr. White is an 82-year-old gentleman who developed increased shortness of breath and was brought into the emergency department for evaluation. He's had a recent CVA and some difficulty with swallowing. Was felt likely that he aspirated and on admission there was evidence of a right lung infiltrate on chest x-ray. He was hypoxic and treated with noninvasive positive pressure ventilation as well as IV fluids and IV antibiotics. Because of the possibility of aspiration he was placed on more broad-spectrum antibiotic therapy with meropenem and levofloxacin. History of allergies to cephalosporins and penicillins also limited antibiotic choices. Abdominal ultrasound was obtained on admission and did show evidence of cholecystitis with cholelithiasis. Because of his compromise at the time of admission it was felt that he was not a good candidate to consider surgical intervention and the hope was that broad spectrum antibiotic therapy would adequately treat the cholecystitis. Over the next few days he gradually improved from a respiratory standpoint but had increased abdominal distention. He was felt to have ongoing difficulty with constipation but despite rectal suppositories and enemas did not have significant stool output. He was given a dose of magnesium citrate, but within a few hours vomited a large amount of feculent appearing material. At that time an NG tube was placed and a CT scan of the abdomen and pelvis was ordered. CT scan showed progression of the cholecystitis despite antibiotic therapy with pericholecystic fluid and evidence of possible microperforations. There was also evidence of an ileus likely secondary to the gallbladder infection. Results of the CT scan were reviewed with the patient's who felt that he would not want further aggressive intervention or surgery. Is decision was felt to be very consistent with the patient's previously expressed wishes prior to his CVA and confusion. At that time all aggressive interventions were stopped including IV fluids, IV antibiotics, BiPAP and he was placed on comfort cares only. Morphine and lorazepam were and intravenously as needed for comfort. He was relatively stable on the morning of discharge and decision has been made for [facility] for [facility]. You will be treated with liquid morphine and lorazepam as needed for comfort. - Patient Instructions Diet, Other: Clear liquid diet only Activity: As Tolerated Other/Special Instructions: Discharge to penitentiary with comfort cares only - Discharge Plan Prescriptions/Med Rec: LORazepam [LORazepam Intensol] 0.5 mg BUCCAL Q2H PRN #20 ml PRN Reason: Anxiety Morphine [Morphine 20 MG/ML Soln] 5 mg BUCCAL Q1H PRN #20 ml PRN Reason: Pain Home Medications: Home Meds Acetaminophen [Acetaminophen ER] 650 mg PO BID 01/20/17 [History] Atenolol 25 mg PO BID 01/20/17 [History] Latanoprost [Xalatan 0.005% Ophth Soln] 1 drop EYEBOTH BEDTIME 01/20/17 [History ] Menthol/Methyl Salicylate [Pain Relieving Rub Cream] 1 gm TOP BID PRN 01/20/17 [ History] LORazepam [LORazepam Intensol] 0.5 mg BUCCAL Q2H PRN #20 ml 01/25/17 [Rx] Morphine [Morphine 20 MG/ML Soln] 5 mg BUCCAL Q1H PRN #20 ml 01/25/17 [Rx] Referrals: Misael Dominguez MD [Primary Care Provider] - - Patient Data Vitals - Most Recent: Last Vital Signs Temp 98.9 F 01/25/17 12:00 Pulse 116 H 01/25/17 12:00 Resp 26 H 01/25/17 12:00 BP 139/87 01/25/17 12:00 Pulse Ox 98 01/25/17 12:00 Weight - Most Recent: 180 lb 1.883 oz I&O - Last 24 hours: Intake & Output 01/24/17 01/25/17 01/25/17 22:59 06:59 14:59 Intake Total 320 600 Output Total 1800 300 Balance -1480 300 Med Orders - Current: Current Medications Acetaminophen (Tylenol) 650 mg RECTAL Q4H PRN PRN Reason: Mild pain/fever Albuterol (Proventil Neb Soln) 2.5 mg NEB Q4H PRN PRN Reason: Shortness Of Breath/wheezing Benzocaine/Menthol (Cepacol Sore Throat) 1 lozenge MUCMEM 6XDAY PRN PRN Reason: Sore Throat Last Admin: 01/25/17 02:05 Dose: 1 lozenge Lorazepam (Ativan) 0.5 - 1 mg IVPUSH Q4H PRN PRN Reason: Anxiety Last Admin: 01/24/17 20:52 Dose: 1 mg Morphine Sulfate (Morphine) 2 - 4 mg IVPUSH Q1H PRN PRN Reason: Pain (severe 7-10) Last Admin: 01/25/17 09:01 Dose: 2 mg Ondansetron HCl (Zofran) 4 mg IV Q6H PRN PRN Reason: Nausea/Vomiting Discontinued Medications Acetaminophen (Tylenol Extra Strength) 1,000 mg PO ONETIME ONE Stop: 01/20/17 16:44 Last Admin: 01/20/17 16:52 Dose: 1,000 mg Acetaminophen (Tylenol) 650 mg PO Q4H PRN PRN Reason: Pain (Mild 1-3)/fever Last Admin: 01/22/17 23:33 Dose: 650 mg Albuterol/Ipratropium (Duoneb 3.0-0.5 Mg/3 Ml) 3 ml NEB ONETIME ONE Stop: 01/20/17 15:56 Last Admin: 01/20/17 16:19 Dose: 3 ml Albuterol/Ipratropium (Duoneb 3.0-0.5 Mg/3 Ml) 3 ml NEB QID HOLLIS Last Admin: 01/21/17 07:31 Dose: Not Given Albuterol/Ipratropium (Duoneb 3.0-0.5 Mg/3 Ml) 3 ml NEB QIDRT HOLLIS Last Admin: 01/24/17 21:58 Dose: 3 ml Barium Sulfate (E-Z-Hd) 340 gm PO . DIRECTED PRN PRN Reason: RADIOLOGY EXAM Stop: 01/25/17 12:50 Last Admin: 01/24/17 14:34 Dose: 50 gm Barium Sulfate (E-Z-Paste) 454 gm PO . DIRECTED PRN PRN Reason: RADIOLOGY EXAM Stop: 01/25/17 12:50 Last Admin: 01/24/17 14:35 Dose: 25 gm Bisacodyl (Dulcolax) 5 mg PO DAILY PRN PRN Reason: Constipation Last Admin: 01/22/17 14:27 Dose: 5 mg Bisacodyl (Dulcolax) 10 mg RECTAL ONETIME ONE Stop: 01/21/17 11:01 Last Admin: 01/21/17 17:06 Dose: 10 mg Diltiazem HCl (Diltiazem) 10 mg IVPUSH ONETIME ONE Stop: 01/20/17 18:44 Last Admin: 01/20/17 18:46 Dose: 10 mg Diltiazem HCl (Cardizem) 30 mg PO Q6HR HOLLIS Last Admin: 01/23/17 03:07 Dose: 30 mg Diltiazem HCl (Cardizem) 60 mg PO Q6HR [facility] Last Admin: 01/24/17 23:35 Dose: Not Given Levofloxacin/Dextrose 750 mg/ (Premix) 150 mls @ 100 mls/hr IV ONETIME ONE Stop: 01/20/17 18:05 Last Admin: 01/20/17 16:44 Dose: 100 mls/hr Sodium Chloride (Normal Saline) 1,000 mls @ 1,000 mls/hr IV ASDIRECTED HOLLIS Sodium Chloride (Normal Saline) 1,000 mls @ 125 mls/hr IV ASDIRECTED HOLLIS Last Admin: 01/21/17 05:15 Dose: 125 mls/hr Sodium Chloride (Normal Saline) 1,000 mls @ 250 mls/hr IV ASDIRECTED HOLLIS Stop: 01/21/17 00:46 Sodium Chloride (Normal Saline) 2,000 mls @ 999 mls/hr IV .BOLUS ONE Stop: 01/20/17 20:20 Last Admin: 01/20/17 18:33 Dose: 999 mls/hr Sodium Chloride (Normal Saline) 1,000 mls @ 1,000 mls/hr IV ONETIME ONE Stop: 01/20/17 19:31 Last Admin: 01/20/17 18:34 Dose: Not Given Meropenem 1,000 mg/ Sodium (Chloride) 100 mls @ 200 mls/hr IV Q8H [facility] Last Admin: 01/21/17 03:59 Dose: 200 mls/hr Levofloxacin/Dextrose 750 mg/ (Premix) 150 mls @ 100 mls/hr IV Q24H [facility] Last Admin: 01/24/17 20:04 Dose: 100 mls/hr Diltiazem HCl 100 mg/ Sodium (Chloride) 100 mls @ 5 mls/hr IV TITRATE HOLLIS; 5 MG /HR PRN Reason: Protocol Last Admin: 01/22/17 13:07 Dose: 10 mg/hr, 10 mls/hr Meropenem 1 gm/ Sodium (Chloride) 50 mls @ 100 mls/hr IV Q8H [facility] Last Admin: 01/24/17 23:35 Dose: Not Given Sodium Chloride (Normal Saline) 1,000 mls @ 50 mls/hr IV ASDIRECTED HOLLIS Last Admin: 01/21/17 19:14 Dose: 50 mls/hr Phytonadione 1 mg/ Sodium (Chloride) 50.5 mls @ 100 mls/hr IV ONETIME ONE Stop: 01/24/17 06:27 Last Admin: 01/24/17 06:30 Dose: 100 mls/hr Sodium Chloride (Normal Saline) 1,000 mls @ 125 mls/hr IV ASDIRECTED [facility] Last Admin: 01/24/17 20:04 Dose: 125 mls/hr Sodium Chloride (Normal Saline) 77 mls @ 3 mls/sec IV ONETIME ONE Stop: 01/24/17 21:06 Last Admin: 01/24/17 21:42 Dose: 3 mls/sec Iopamidol (Isovue-300 (61%)) 123 ml IV . DIRECTED [facility] Last Admin: 01/24/17 21:42 Dose: 150 ml Lorazepam (Ativan) 1 mg IVPUSH ONETIME ONE Stop: 01/20/17 17:07 Last Admin: 01/20/17 17:03 Dose: 1 mg Lorazepam (Ativan) Confirm Administered Dose 2 mg .ROUTE .STK-MED ONE Stop: 01/20/17 17:07 Last Admin: 01/20/17 17:25 Dose: Not Given Lorazepam (Ativan) 1 mg IVPUSH ONETIME ONE Stop: 01/20/17 17:41 Last Admin: 01/20/17 17:31 Dose: 1 mg Magnesium Citrate (Citrate Of Magnesia) 296 ml PO ONETIME ONE Stop: 01/24/17 16:16 Last Admin: 01/24/17 16:53 Dose: 296 ml Magnesium Hydroxide (Milk Of Magnesia) 30 ml PO Q6H PRN PRN Reason: Constipation Last Admin: 01/24/17 10:30 Dose: 30 ml Methylprednisolone Sodium Succinate (Solu-Medrol) 125 mg IVPUSH ONETIME ONE Stop: 01/20/17 16:37 Last Admin: 01/20/17 16:43 Dose: 125 mg Methylprednisolone Sodium Succinate (Solu-Medrol) 62.5 mg IVPUSH Q8H [facility] Last Admin: 01/22/17 08:25 Dose: 62.5 mg Methylprednisolone Sodium Succinate (Solu-Medrol) 40 mg IVPUSH Q12H [facility] Last Admin: 01/24/17 21:58 Dose: 40 mg Morphine Sulfate (Morphine) Confirm Administered Dose 2 mg .ROUTE .STK-MED ONE Stop: 01/20/17 17:03 Last Admin: 01/21/17 07:35 Dose: Not Given Morphine Sulfate (Morphine) 2 - 4 mg IVPUSH Q2H PRN PRN Reason: Pain (severe 7-10) Last Admin: 01/24/17 22:17 Dose: 2 mg Morphine Sulfate (Morphine) 2 mg IVPUSH ONETIME ONE Stop: 01/20/17 17:02 Last Admin: 01/20/17 17:01 Dose: 2 mg Ondansetron HCl (Zofran Odt) 4 mg PO Q6H PRN PRN Reason: Nausea able to take PO Pantoprazole Sodium (Protonix Iv) 40 mg IVPUSH Q24H [facility] Last Admin: 01/21/17 20:48 Dose: 40 mg Pantoprazole Sodium (Protonix) 40 mg PO BEDTIME [facility] Last Admin: 01/24/17 21:55 Dose: Not Given Polyethylene Glycol (Miralax) 17 gm PO DAILY PRN PRN Reason: Constipation Polyethylene Glycol (Miralax) 17 gm PO BID [facility] Last Admin: 01/24/17 21:55 Dose: Not Given Sodium Biphosphate/Sodium Phosphate (Fleet Enema) 133 ml RECTAL ONETIME ONE Stop: 01/23/17 09:28 Last Admin: 01/23/17 10:06 Dose: 133 ml Sodium Biphosphate/Sodium Phosphate (Fleet Enema) 133 ml RECTAL ONETIME ONE Stop: 01/24/17 08:51 Last Admin: 01/24/17 11:50 Dose: 1 bot Sodium Chloride (Saline Flush) 10 ml FLUSH ONETIME PRN PRN Reason: PER RADIOLOGY PROTOCOL Last Admin: 01/24/17 21:42 Dose: 10 ml Warfarin Sodium (Coumadin) 5 mg PO ONETIME ONE Stop: 01/21/17 11:01 Last Admin: 01/21/17 11:13 Dose: 5 mg Warfarin Sodium (Coumadin) 2.5 mg PO ONETIME ONE Stop: 01/22/17 16:31 Last Admin: 01/22/17 17:10 Dose: 2.5 mg *Q Meaningful Use (DIS) - VTE *Q VTE Criteria *Q: - Stroke *Q Stroke Criteria *Q: - AMI *Q AMI Criteria *Q:
== END 2017-01-25 16:00 | DRG 177 ==
LOC: JP.ED 15:41 → JP.ICU 18:22
PROVIDERS: ADMIT Internal Medicine; ATTEND Hospitalist
DX: J69.0 Pneumonitis due to inhalation of food and vomit (principal); J96.01 Acute respiratory failure with hypoxia; K80.00 Calculus of gallbladder with acute cholecystitis without obstruction; I67.9 Cerebrovascular disease, unspecified; I48.91 Unspecified atrial fibrillation; I69.322 Dysarthria following cerebral infarction; I69.391 Dysphagia following cerebral infarction; Z79.01 Long term (current) use of anticoagulants; R13.10 Dysphagia, unspecified; E78.00 Pure hypercholesterolemia, unspecified; I10 Essential (primary) hypertension; Z88.0 Allergy status to penicillin; Z88.8 Allergy status to other drugs, medicaments and biological substances; Z51.5 Encounter for palliative care; Z79.899 Other long term (current) drug therapy
CPT/HCPCS: 36415; 71010 ×2; 76705; 80053; 82150; 83605; 83690; 84484; 85025; 87040 ×2; 93005; 93010; 94660; 96374; 96375; 99285 ×2; A9270; J1956; J2060 ×2; J2270; J2930; J7620; 74177; 74230; 74230-26; 83735; 85027; 85610; 92526-GN; 92610-GN; 92611-GN; 94640-76; 96361; C9113; J2185; J2920; J3430; J3490; J7030; J7040; J7050